=== PATIENT | male | born 1945 | race Caucasian/White ===

== ENCOUNTER 2022-01-18 14:44 | Inpatient (IN) ==
[2022-01-18] MEDS ORDERED: SODIUM CHLORIDE 0.9% 1000ML 1,000 ML IV ONE (15:40)
--- NOTE | 2022-01-18 16:03 | Emergency Department Note ---
Impression & Plan CADEN (acute kidney injury), Acute hypotension, Acute UTI (urinary tract infection) ED Provider Note NAME: TEQUILA KAY AGE: 76 SEX: M : 1945 ARRIVES VIA: Ambulance INFORMANT: Patient, patient's family member ED PROVIDER(S): Earl Martell DO CHIEF COMPLAINT: Abnormal creatinine HPI: The patient is a 76-year-old male who was sent to the emergency department by his primary care physician for an evaluation of possible renal failure. The patient states has been noticing decreased blood pressure and generalized weakness. The patient presented with his family member who does give most of the history. Apparently the patient was recently in a facility in [place] where he was in rehab and personal-penitentiary. He was transferred to our facility last Saturday to a personal penitentiary locally. He had laboratory studies done by the outpatient doctor yesterday and was told to come the emergency department today because of renal failure. The patient states has been compliant with his usual outpatient medication although he recently was told to stop taking his Lasix. He has noticed weight loss as well as generalized weakness. He notices some decreased urine output. He has had no fever but he does complain of some decreased activity and exertional dyspnea. He denies having any chest pain. He states his symptoms are moderate and do worsen with any exertion. He has been trying to take part in rehab but its been difficult. ROS: See above HPI for pertinent positives & the patient is a 76-year-old male who presented to the emergency department negatives. A total of 10 systems reviewed and were otherwise negative. PAST MEDICAL HISTORY: See Below PAST SURGICAL HISTORY: See Below FAMILY HISTORY: See Below SOCIAL HISTORY: See Below HOME MEDICATIONS: See Below ALLERGIES: See Below VITALS: See Below PHYSICAL EXAMINATION: GENERAL: The patient is awake and alert. He does not appear to be anxious or uncomfortable. EYES: The conjunctivae are clear. The pupils are round and reactive. EARS, NOSE, MOUTH AND THROAT: The nose is without any evidence of any deformity. NECK: The neck is nontender and supple. RESPIRATORY: Diminished breath sounds are noted bilaterally. There were rales at both bases. CARDIOVASCULAR: Regular rate and rhythm noted there no murmurs rubs or gallops normal S1 normal S2. GASTROINTESTINAL: The abdomen is soft. Abdomen is nontender. MUSCULOSKELETAL/EXTREMITIES: There is no evidence of gross deformity full range of motion is noted in the hips and shoulders. SKIN: Chronic venous stasis changes were noted bilaterally. There is pedal edema bilaterally. NEUROLOGIC: Patient is awake alert and oriented x3. Strength was diminished but symmetric. MEDICAL DECISION MAKING: Because of worsening creatinine. The patient was recently discharged from inpatient treatment and personal-penitentiary in [place]. He only returned to our area last Saturday. The patient had outpatient labs and was instructed to c ome to the emergency department because of possible renal failure. I did review the recent labs from the outpatient facility. The patient was treated with IV fluids in the emergency department. He was also treated with IV antibiotics for presumed urinary tract infection. He does not appear to have any pulmonary symptoms and his COVID swab was positive but I have a feeling that this could possibly false positive as the patient's daughter states that he recently was diagnosed with COVID-19. I discussed the patient's laboratory and radiographic studies with the on-call [facility]. They will evaluate the patient in the emergency department for further management and disposition. Triage Nursing notes reviewed. Prior medical records reviewed Vital Signs: reviewed and remarkable for tachycardia and initial hypotension. Differential diagnosis: Infection, dehydration, metabolic abnormality, hypo/hyperglycemia, electrolyte disturbance, anemia, hypoxia, cardiac sources, intracerebral event, toxicologic, neurologic, as well as other pathologies. ER treatment provided: See below Diagnostics interpreted by me: ECG: EKG was obtained in the emergency department. My interpretation is sinus rhythm at 123 bpm. There was no ectopy. Low voltage was noted throughout. This was compared to a tracing from March 09, 2019. No changes were noted. Cardiac Monitoring: An order was placed for continuous cardiac monitoring. The monitor shows a rate of 108 bpm With sinus tachycardia Laboratory studies: As stated above and show below. Imaging studies: See below Consultation(s): I discussed this case with Carlita who is on-call for the [facility]. Past Med/Surg History Medical History Hypertension Osteomyelitis of lumbar spine Surgical History H/O lumbosacral spine surgery History of back surgery Family History Other Family history non-contributory Social History Smoking Status: Never smoker Preferred Language: Jamaican Feels Safe at Home: Yes Allergies Allergies Allergy/AdvReac Type Severity Reaction Status Date / Time ciprofloxacin Allergy Intermediate Rash Verified 01/18/22 16:07 codeine AdvReac Severe HALLUCINATI Verified 01/18/22 16:07 ONS minocycline AdvReac Intermediate SKIN Verified 01/18/22 16:07 DISCOLORATION Home Meds Home Medications Medication Instructions Recorded Confirmed doxycycline monohydrate 100 mg 100 mg PO BID 03/09/19 01/18/22 capsule (Monodox) fluticasone propionate 50 2 spray INTRANASAL DAILY 03/09/19 01/18/22 mcg/actuation nasal spray,suspension (Flonase Allergy Relief) levocetirizine 5 mg tablet (Xyzal) 5 mg PO BID 03/09/19 01/18/22 Lactobacillus acidophilus 10,000 mmu cells PO BID 01/18/22 01/18/22 acetaminophen 325 mg tablet 650 mg PO Q6H PRN 01/18/22 01/18/22 (Tylenol) ascorbic acid (vitamin C) 500 mg/5 400 mg PO DAILY 01/18/22 01/18/22 mL oral liquid (Liquid C) carvedilol 3.125 mg tablet 3.125 mg PO BIDM 01/18/22 01/18/22 esomeprazole magnesium 20 mg 20 mg PO BID PRN 01/18/22 01/18/22 capsule,delayed release (Nexium) ferrous sulfate 325 mg (65 mg 325 mg PO DAILY 01/18/22 01/18/22 iron) tablet furosemide 20 mg tablet (Lasix) 20 mg PO DAILY 01/18/22 01/18/22 guaifenesin 100 mg/5 mL oral liquid 400 mg PO BID PRN 01/18/22 01/18/22 loratadine 10 mg tablet (Claritin) 10 mg PO DAILY 01/18/22 01/18/22 potassium chloride 20 mEq 20 meq PO DAILY 01/18/22 01/18/22 tablet,extended release spironolactone 25 mg tablet 25 mg PO BID 01/18/22 01/18/22 thiamine mononitrate (vit B1) 100 100 mg PO DAILY 01/18/22 01/18/22 mg tablet tramadol 50 mg tablet 50 mg PO Q8H PRN 01/18/22 01/18/22 Results & Data (ED) Vital Signs Vital Signs - 24 hr 01/18/22 15:01 01/18/22 15:59 01/18/22 16:30 Temperature 36.6 C Temperature Source Temporal Artery Scan Pulse Rate 82 113 H Pulse Rate [Apical] 113 H Respiratory Rate 18 16 16 Respiratory Effort / Characteristics Non-Labored Spontaneous Non-Labored Spontaneous Respiratory Depth Normal Normal Respiratory Pattern Regular Regular Blood Pressure 99/65 L 126/90 Blood Pressure [Right Arm] 121/92 Blood Pressure Mean 76 102 Blood Pressure Mean [Right Arm] 101 Blood Pressure Position Sitting Blood Pressure Position [Right Arm] Pulse Oximetry 98 94 99 Oxygen Delivery Method Room Air Room Air Sepsis Recent Fever Within 48 Hours No Sepsis New/Unexplained Change in Mental Status N/A Sepsis Action Taken by Nursing No Action Required 01/18/22 17:07 01/18/22 17:30 01/18/22 18:00 Temperature Temperature Source Pulse Rate 110 H 108 H Pulse Rate [Apical] 121 H Respiratory Rate 20 18 17 Respiratory Effort / Characteristics Respiratory Depth Respiratory Pattern Blood Pressure 122/83 123/87 Blood Pressure [Right Arm] 136/92 Blood Pressure Mean 96 99 Blood Pressure Mean [Right Arm] 106 Blood Pressure Position Blood Pressure Position [Right Arm] Lying Pulse Oximetry 96 100 94 Oxygen Delivery Method Room Air Sepsis Recent Fever Within 48 Hours Sepsis New/Unexplained Change in Mental Status Sepsis Action Taken by [facility]itentiary Medications Current Medication List: was personally reviewed by me Laboratory Data Attestation: I reviewed the patient's lab results. Result diagrams: 01/18/22 15:56 01/18/22 15:56 Lab Results 01/18/22 01/18/22 01/18/22 Range/Units 15:49 15:56 15:56 WBC 13.95 H (4.8-10.8) K/uL RBC 3.87 L (4.7-6.1) M/uL Hgb 11.9 L (14.0-18.0) g/dL Hct 36.8 L (42-52) % MCV 95.1 (80-100) fL MCH 30.7 (25-34) pg MCHC 32.3 (32-36) g/dL RDW Std Deviation 47.6 H (36.4-46.3) fL RDW Coeff of Paige 13.7 (11.5-14.5) % Plt Count 432 H (130-400) K/uL MPV 9.6 (7.4-10.4) fL Immature Gran % (Auto) 1.3 % Neut % (Auto) 70.9 % Lymph % (Auto) 17.8 % Adams % (Auto) 8.6 % Eos % (Auto) 1.3 % Baso % (Auto) 0.1 % Neut # (Auto) 9.89 H (1.4-6.5) K/uL Lymph # (Auto) 2.48 (1.2-3.4) K/uL Adams # (Auto) 1.20 H (0.11-0.59) K/uL Eos # (Auto) 0.18 (0-0.5) K/uL Baso # (Auto) 0.02 (0-0.2) K/uL Immature Gran # (Auto) 0.18 H (0.00-0.02) K/uL PT (9.0-12.0) Seconds INR (0.9-1.1) APTT (21.0-31.0) Seconds PTT Ratio Sodium 132 L (136-145) mmol/L Potassium 4.7 (3.5-5.1) mmol/L Chloride 101 (98-107) mmol/L Carbon Dioxide 21 (21-32) mmol/L Anion Gap 10 (3-11) BUN 36 H (6-23) mg/dl Creatinine 2.70 H (0.6-1.4) mg/dl Est Cr Clr Drug Dosing Not Reportable Est GFR ( Amer) 25.7 ml/min Est GFR (Non-Af Amer) 22.2 ml/min BUN/Creatinine Ratio 13.3 (10-20) Glucose 105 H (70-99(Fasting)) mg/dl Calcium 9.6 (8.5-10.1) mg/dl Total Bilirubin 0.6 (0.2-1.0) mg/dl AST 40 H (13-39) U/L ALT 49 (7-52) U/L Alkaline Phosphatase 321 H (34-104) U/L Total Protein 7.5 (6.0-8.3) gm/dl Albumin 3.6 (3.4-5.0) gm/dl Globulin 3.9 (2.5-4.0) gm/dl Albumin/Globulin Ratio 0.9 (0.9-2) Urine Color Urine Appearance (Clear) Urine pH (4.5-7.5) Ur Specific [place] (1.000-1.030) Urine Protein (Negative) Urine Glucose (UA) (Negative) Urine Ketones (Negative) Urine Blood (Negative) Urine Nitrite (Negative) Urine Bilirubin (Negative) Urine Urobilinogen (Negative) Ur Leukocyte Esterase (Negative) Urine WBC (Auto) (0-5) /hpf Urine RBC (Auto) (0-4) /hpf U Hyaline Cast (Auto) (0-5) /lpf U Epithel Cells (Auto) (0-5) /lpf Urine Bacteria (Auto) (Negative) Urine Yeast SARS-CoV-2, RNA, NAAT POSITIVE A* (NEGATIVE) 01/18/22 01/18/22 Range/Units 15:56 17:03 WBC (4.8-10.8) K/uL RBC (4.7-6.1) M/uL Hgb (14.0-18.0) g/dL Hct (42-52) % MCV (80-100) fL MCH (25-34) pg MCHC (32-36) g/dL RDW Std Deviation (36.4-46.3) fL RDW Coeff of Paige (11.5-14.5) % Plt Count (130-400) K/uL MPV (7.4-10.4) fL Immature Gran % (Auto) % Neut % (Auto) % Lymph % (Auto) % Adams % (Auto) % Eos % (Auto) % Baso % (Auto) % Neut # (Auto) (1.4-6.5) K/uL Lymph # (Auto) (1.2-3.4) K/uL Adams # (Auto) (0.11-0.59) K/uL Eos # (Auto) (0-0.5) K/uL Baso # (Auto) (0-0.2) K/uL Immature Gran # (Auto) (0.00-0.02) K/uL PT 9.7 (9.0-12.0) Seconds INR 0.9 (0.9-1.1) APTT < 20.0 L (21.0-31.0) Seconds PTT Ratio 0.7 Sodium (136-145) mmol/L Potassium (3.5-5.1) mmol/L Chloride (98-107) mmol/L Carbon Dioxide (21-32) mmol/L Anion Gap (3-11) BUN (6-23) mg/dl Creatinine (0.6-1.4) mg/dl Est Cr Clr Drug Dosing Est GFR ( Amer) ml/min Est GFR (Non-Af Amer) ml/min BUN/Creatinine Ratio (10-20) Glucose (70-99(Fasting)) mg/dl Calcium (8.5-10.1) mg/dl Total Bilirubin (0.2-1.0) mg/dl AST (13-39) U/L ALT (7-52) U/L Alkaline Phosphatase (34-104) U/L Total Protein (6.0-8.3) gm/dl Albumin (3.4-5.0) gm/dl Globulin (2.5-4.0) gm/dl Albumin/Globulin Ratio (0.9-2) Urine Color Yellow Urine Appearance Cloudy A (Clear) Urine pH 5.5 (4.5-7.5) Ur Specific [place] 1.011 (1.000-1.030) Urine Protein Trace H (Negative) Urine Glucose (UA) Negative (Negative) Urine Ketones Negative (Negative) Urine Blood 3+ H (Negative) Urine Nitrite Positive A (Negative) Urine Bilirubin Negative (Negative) Urine Urobilinogen Negative (Negative) Ur Leukocyte Esterase 2+ H (Negative) Urine WBC (Auto) >30 H (0-5) /hpf Urine RBC (Auto) 0-4 (0-4) /hpf U Hyaline Cast (Auto) 1-5 (0-5) /lpf U Epithel Cells (Auto) 5-10 H (0-5) /lpf Urine Bacteria (Auto) 4+ H (Negative) Urine Yeast Not Reportable SARS-CoV-2, RNA, NAAT (NEGATIVE) Administered Medications Discontinued Medications Sodium Chloride (Nss 1000ml) 1,000 mls @ 999 mls/hr IV .Q1H1M ONE Stop: 01/18/22 16:40 Last Infusion: 01/18/22 17:27 Dose: 0 mls/hr Documented by: [id number] Admin: 01/18/22 16:02 Dose: 999 mls/hr Documented by: [id number] Ceftriaxone Sodium (Rocephin) 1,000 mg in 50 mls @ 100 mls/hr IV NOW STA Stop: 01/18/22 18:31 Last Infusion: 01/18/22 18:41 Dose: 0 mls/hr Documented by: [id number] Admin: 01/18/22 18:11 Dose: 100 mls/hr Documented by: [id number] Sodium Chloride (Nss) 500 mls @ 999 mls/hr IV .Q31M ONE Stop: 01/18/22 18:33 Last Infusion: 01/18/22 18:42 Dose: 0 mls/hr Documented by: [id number] Admin: 01/18/22 18:11 Dose: 999 mls/hr Documented by: [id number] Imaging Data Radiologist's Impression: Chest X-Ray 01/18/22 15:03 XR chest 1V portable CLINICAL HISTORY: illness. Evaluate cardiopulmonary status COMPARISON STUDY: No previous studies for comparison. TECHNIQUE: 1 view of the chest FINDINGS: Single frontal view of the chest demonstrates the cardiomediastinal silhouette to be within normal limits. The lungs are clear of alveolar opacities. There is no evidence for pleural effusion. There is no evidence for vascular congestion. There is no acute osseous pathology. IMPRESSION: 1. No acute cardiopulmonary disease. ACT 112: Negative or not required by law. Electronically signed by: Obed Cardona M.D. 01/18/2022 4:48 PM Discharge Plan Visit Data Chief Complaint: Abnormal Labs/Diagnostic Testing ED Provider: Earl Martell Discharge Problem: CADEN (acute kidney injury), Acute hypotension, Acute UTI (urinary tract infection) Patient Disposition: Being Evaluated by Hospitalist Forms Stand Alone Forms: [facility] Prescriptions Prescriptions: No Action doxycycline monohydrate [Monodox] 100 mg capsule 100 mg PO BID RF: 0 fluticasone propionate [Flonase Allergy Relief] 50 mcg/actuation spray,suspension 2 spray intranasal DAILY RF: 0 levocetirizine [Xyzal] 5 mg tablet 5 mg PO BID RF: 0 acetaminophen [Tylenol] 325 mg Tablet 650 mg PO Q6H PRN (Reason: FEVER/PAIN) RF: 0 tramadol 50 mg Tablet 50 mg PO Q8H PRN (Reason: Pain) RF: 0 guaifenesin 100 mg/5 mL Liquid 400 mg PO BID PRN (Reason: Cough) RF: 0 spironolactone 25 mg Tablet 25 mg PO BID RF: 0 carvedilol 3.125 mg Tablet 3.125 mg PO BIDM RF: 0 ferrous sulfate 325 mg (65 mg iron) Tablet 325 mg PO DAILY RF: 0 furosemide [Lasix] 20 mg Tablet 20 mg PO DAILY RF: 0 Lactobacillus acidophilus Capsule 10,000 mmu cells PO BID RF: 0 loratadine [Claritin] 10 mg Tablet 10 mg PO DAILY RF: 0 esomeprazole magnesium [Nexium] 20 mg Capsule,Delayed Release(Dr/Ec) 20 mg PO BID PRN (Reason: Nausea) RF: 0 thiamine mononitrate (vit B1) 100 mg Tablet 100 mg PO DAILY RF: 0 potassium chloride 20 mEq Tablet Extended Release 20 meq PO DAILY RF: 0 Liquid C 500 mg/5 mL Liquid 400 mg PO DAILY RF: 0 Referrals Referrals: Gloria Muñoz MD [Primary Care Provider] -
[2022-01-18 16:17] LABS: Basophils # (auto) 0.02 K/uL (0-0.2); Basophils % (auto) 0.1 %; Eosinophils # (auto) 0.18 K/uL (0-0.5); Eosinophils % (auto) 1.3 %; Hematocrit (blood only) 36.8 % (42-52); Hemoglobin 11.9 g/dL (14.0-18.0); Immature Granulocytes # (auto) 0.18 K/uL (0.00-0.02); Immature Granulocytes % (auto) 1.3 %; Lymphocytes # (auto) 2.48 K/uL (1.2-3.4); Lymphocytes % (auto) 17.8 %; Mean Corpuscular Hemoglobin 30.7 pg (25-34); Mean Corpuscular Hgb Conc 32.3 g/dL (32-36); Mean Corpuscular Volume 95.1 fL (80-100); Mean Platelet Volume 9.6 fL (7.4-10.4); Monocytes % (auto) 8.6 %; Neutrophils # (auto) 9.89 K/uL (1.4-6.5); Neutrophils % (auto) 70.9 %; Platelet Count 432 K/uL (130-400); RDW Coefficient of Variation 13.7 % (11.5-14.5); RDW Standard Deviation 47.6 fL (36.4-46.3); Red Blood Count 3.87 M/uL (4.7-6.1); White Blood Count 13.95 K/uL (4.8-10.8)
--- NOTE | 2022-01-18 16:49 | XRay Report ---
XR chest 1V portable CLINICAL HISTORY: illness. Evaluate cardiopulmonary status COMPARISON STUDY: No previous studies for comparison. TECHNIQUE: 1 view of the chest FINDINGS: Single frontal view of the chest demonstrates the cardiomediastinal silhouette to be within normal li mits. The lungs are clear of alveolar opacities. There is no evidence for pleural effusion. There is no evidence for vascular congestion. There is no acute osseous pathology. IMPRESSION: 1. No acute cardiopulmonary disease. ACT 112: Negative or not required by law. Electronically signed by: Obed Cardona M.D. 01/18/2022 4:48 PM
[2022-01-18 16:51] LABS: INR 0.9 (0.9-1.1); Partial Thromboplastin Ratio 0.7; Prothrombin Time 9.7 Seconds (9.0-12.0)
[2022-01-18 16:58] LABS: Partial Thromboplastin Time < 20.0 Seconds (21.0-31.0)
[2022-01-18 17:16] LABS: Alanine Aminotransferase 49 U/L (7-52); Albumin Globulin Ratio 0.9 (0.9-2); Albumin Level 3.6 gm/dl (3.4-5.0); Alkaline Phosphatase 321 U/L (34-104); Anion Gap 10 (3-11); Aspartate Aminotransferase 40 U/L (13-39); BUN Creatinine Ratio 13.3 (10-20); Bilirubin,Total 0.6 mg/dl (0.2-1.0); Blood Urea Nitrogen 36 mg/dl (6-23); Calcium 9.6 mg/dl (8.5-10.1); Carbon Dioxide 21 mmol/L (21-32); Chloride 101 mmol/L (98-107); Est GFR (African American) 25.7 ml/min; Est GFR (Non-African American) 22.2 ml/min; Globulin 3.9 gm/dl (2.5-4.0); Glucose 105 mg/dl (70-99(Fasting)); Potassium 4.7 mmol/L (3.5-5.1); Sodium 132 mmol/L (136-145); Total Protein 7.5 gm/dl (6.0-8.3)
[2022-01-18 17:44] LABS: Appearance Urine Cloudy (Clear); Bacteria Urine Automated 4+ (Negative); Bilirubin Urine Negative (Negative); Blood Urine 3+ (Negative); Color Urine Yellow; Glucose Urine UA Negative (Negative); Ketones Urine Negative (Negative); Leukocyte Esterase Urine 2+ (Negative); Nitrite Urine Positive (Negative); Protein Urine Trace (Negative); Specific Gravity Urine 1.011 (1.000-1.030); Urobilinogen Urine Negative (Negative); WBC Urine Automated >30 /hpf (0-5); pH Urine 5.5 (4.5-7.5)
[2022-01-18] MEDS ORDERED: cefTRIAXone SODIUM 1,000 MG/50 ML BAG IV STA (18:02)
[2022-01-18] MEDS ORDERED: SODIUM CHLORIDE 0.9% 500 ML IV ONE (18:03)
--- NOTE | 2022-01-18 18:29 | History & Physical Report ---
Date of Service January 18, 2022 Assessment & Plan (1) CADEN (acute kidney injury): (2) Acute UTI (urinary tract infection): Plan: - Admit - HOLD home lasix, spironolactone and potassium for now - Cr. 2.7 on admission, trend with am labs, outpatient labs were reported to be >3. Unknown baseline. - Continue IV rocephin IV for now, allow doxycycline with hx of osteomyeltiis and chronic back issues - Consider nephrology consult, unlikely that he has established with a clock maker as he just moved to the area last Saturday. - UA appears to be acutely infected, follow urine culture - Avoid nephrotoxins and renally reduce medications - 1.5 L NSS given in the ER. No further fluids until ECHO of heart obtained to see if pt with hx of CHF. He cannot tell me his full medical history or what happened with multiple previous hospitalizations. - HIM consulted for outside hospital records, [place], [place] (3) Hypertension: Plan: - Cont carvedilol, holding spironolactone and lasix as above - Check 2D echo - EKG reviewed, monitor on tele - NO cardiac complaints presently (4) Osteomyelitis of lumbar spine: Plan: - Hx of such, continue with doxycyline. NO current leukocytosis, afebrile, no acute co back pain. - Await outside records (5) COVID-19: Plan: - Positive on admission, pt is vaccinated x 3, reports having infection in September 2021 and remains positive. He has a dry cough since then, but no other respiratory symptoms. - O2 sats are stable on room air. DVT ppx: teds, scds, heparin subq CODE: DNR/DNI Dispo: From [facility], likely discharge within 1-2 days. History of Present Illness Primary Care Provider: Gloria Muñoz MD This is a 76-year-old male with PMHx of multiple recent hospitalizations at [facility] in [place]. He was brought locally to [facility] (assisted living) by his family, as his daughter lives here in town. He describes being in and out of the hospital on multiple occasions through September 2021. In September he was hospitalized for COVID +19 pneumonia, and reported admitted for alcohol withdrawal and stopped drinking at that time. Sometimes during this he was also worked up for a GI bleed and received 4 units of blood during a hospitalization and describes an EGD without acute source for the bleeding. He had previous back surgery who presents to the ER after he was called by outpa tient provider that his kidney function was increased and daughter thought that he was in renal failure. He has previously had other issues with his kidneys during hospitalizations. Pt also describes previous back surgeries on 2005 and 2014 involving L2-L4. He has had infected abscess and osteomyelitis previously, and is on chronic doxycycline BID. Surgical Hx: R rotator cuff repair, Prostate cancer s/p prostatectomy in 2006, cholecystectomy, back surgery x 2 Social Hx; No smoking, previous alcohol use but quit drinking in Sep 2021. Creatinine is found to be 2.7 today, previously was higher than 3 per daughter through report. UTI appears to be present with a grossly infected appearing UA. Pt admits to having burning with urination within the past day, but did not think much of it. He denies increased frequency, hematuria, abdominal pain, n/v, or inability to urinate. He notes having a straight cath about 3 weeks ago because of urinary retention which in a hospital, but denies any other catheterization. Pt is chronically on doxycycline BID for hx of osteomyelitis and a spinal abscess from previous back surgeries. He has been started on 1.5 L of NSS in the ER and Rocephin IV. Pt reports he took all of his home medications. Allergies Allergy/AdvReac Type Severity Reaction Status Date / Time ciprofloxacin Allergy Intermediate Rash Verified 01/18/22 16:07 codeine AdvReac Severe HALLUCINATI Verified 01/18/22 16:07 ONS minocycline AdvReac Intermediate SKIN Verified 01/18/22 16:07 DISCOLORATION Home Medications Medication Instructions Recorded Confirmed Type doxycycline monohydrate 100 mg 100 mg PO BID 03/09/19 01/18/22 History capsule (Monodox) fluticasone propionate 50 2 spray INTRANASAL DAILY 03/09/19 01/18/22 History mcg/actuation nasal spray,suspension (Flonase Allergy Relief) levocetirizine 5 mg tablet (Xyzal) 5 mg PO BID 03/09/19 01/18/22 History Lactobacillus acidophilus 10,000 mmu cells PO BID 01/18/22 01/18/22 History acetaminophen 325 mg tablet 650 mg PO Q6H PRN 01/18/22 01/18/22 History (Tylenol) ascorbic acid (vitamin C) 500 mg/5 400 mg PO DAILY 01/18/22 01/18/22 History mL oral liquid (Liquid C) carvedilol 3.125 mg tablet 3.125 mg PO BIDM 01/18/22 01/18/22 History esomeprazole magnesium 20 mg 20 mg PO BID PRN 01/18/22 01/18/22 History capsule,delayed release (Nexium) ferrous sulfate 325 mg (65 mg 325 mg PO DAILY 01/18/22 01/18/22 History iron) tablet furosemide 20 mg tablet (Lasix) 20 mg PO DAILY 01/18/22 01/18/22 History guaifenesin 100 mg/5 mL oral liquid 400 mg PO BID PRN 01/18/22 01/18/22 History loratadine 10 mg tablet (Claritin) 10 mg PO DAILY 01/18/22 01/18/22 History potassium chloride 20 mEq 20 meq PO DAILY 01/18/22 01/18/22 History tablet,extended release spironolactone 25 mg tablet 25 mg PO BID 01/18/22 01/18/22 History thiamine mononitrate (vit B1) 100 100 mg PO DAILY 01/18/22 01/18/22 History mg tablet tramadol 50 mg tablet 50 mg PO Q8H PRN 01/18/22 01/18/22 History Past Med/Surg History Medical History (Updated 01/18/22 @ 20:10 by Millicent Ramos PA-C) Hx of malignant neoplasm of prostate Hypertension Osteomyelitis of lumbar spine Surgical History (Updated 01/18/22 @ 19:58 by Millicent Ramos PA-C) H/O lumbosacral spine surgery History of back surgery Hx of cholecystectomy Hx of prostatectomy Hx of rotator cuff surgery Family History Other Family history non-contributory Social History Smoking Status: Never smoker Preferred Language: French Feels Safe at Home: Yes Review of Systems Review of Systems: Constitutional: No fever, sweats or chills Eyes: No diplopia, no worsening or blurred vision ENT: normal hearing, no trouble swallowing Respiratory: No cough, sputum, dyspnea at rest or on exertion Cardiovascular: No chest pain, tightness or palpitations Abdomen: No pain, nausea, vomiting, diarrhea or constipation Musculoskeletal: No joint pain, calf pain, swelling Neurologic: No weakness, numbness/tingling, or balance problems Psychiatric: No anxiety or depression Skin: No rash or itch, chronic parra discoloration on extremities Physical Exam Physical Exam: General: awake, alert, no apparent distress Head: Normocephalic, atraumatic ENT: PERRL, EOMI, no pharyngeal exudate, mucous membranes moist Chest: Clear to auscultation, on room air, no adventitious breath sounds Cardiac: Sinus tach, faint systolic ejection murmur, no JVD, normal peripheral pulses, good capillary refill Abdominal: NABS x 4 quadrants, soft, nondistended, nontender to palpation, no rebound or guarding Extremities: Normal inspection, no peripheral edema or erythema, calfs nontender to palpation Skin: chronic changes, parra appearance of skin throughout, no erythema Psych: Normal mood and affect Neuro: AAO x 3, strength intact bilaterally and rated 5/5, no motor deficits, speech is clear, no peripheral sensory deficits Results & Data Results & Data ([facility]) Vital Signs (Past 12 Hours) Vital Signs Temp Pulse Pulse Resp BP BP Pulse Ox 01/18/22 18:00 108 H 17 123/87 94 01/18/22 17:30 110 H 18 122/83 100 01/18/22 17:07 121 H 20 136/92 96 01/18/22 16:30 113 H 16 126/90 99 01/18/22 15:59 113 H 16 121/92 94 01/18/22 15:01 36.6 C 82 18 99/65 L 98 Laboratory Results 01/18/22 17:03 Urine Culture - Pending Urine,Clean Catch 01/18/22 01/18/22 01/18/22 17:03 15:56 15:56 WBC RBC Hgb Hct MCV MCH MCHC RDW Std Deviation RDW Coeff of Paige Plt Count MPV Immature Gran % (Auto) Neut % (Auto) Lymph % (Auto) [place] % (Auto) Eos % (Auto) Baso % (Auto) Neut # (Auto) Lymph # (Auto) [place] # (Auto) Eos # (Auto) Baso # (Auto) Immature Gran # (Auto) PT 9.7 INR 0.9 APTT < 20.0 L PTT Ratio 0.7 Sodium 132 L Potassium 4.7 Chloride 101 Carbon Dioxide 21 Anion Gap 10 BUN 36 H Creatinine 2.70 H Est Cr Clr Drug Dosing Not Reportable Est GFR ( Amer) 25.7 Est GFR (Non-Af Amer) 22.2 BUN/Creatinine Ratio 13.3 Glucose 105 H Calcium 9.6 Total Bilirubin 0.6 AST 40 H ALT 49 Alkaline Phosphatase 321 H Total Protein 7.5 Albumin 3.6 Globulin 3.9 Albumin/Globulin Ratio 0.9 Urine Color Yellow Urine Appearance Cloudy A Urine pH 5.5 Ur Specific [place] 1.011 Urine Protein Trace H Urine Glucose (UA) Negative Urine Ketones Negative Urine Blood 3+ H Urine Nitrite Positive A Urine Bilirubin Negative Urine Urobilinogen Negative Ur Leukocyte Esterase 2+ H Urine WBC (Auto) >30 H Urine RBC (Auto) 0-4 U Hyaline Cast (Auto) 1-5 U Epithel Cells (Auto) 5-10 H Urine Bacteria (Auto) 4+ H Urine Yeast Not Reportable SARS-CoV-2, RNA, NAAT 01/18/22 01/18/22 15:56 15:49 WBC 13.95 H RBC 3.87 L Hgb 11.9 L Hct 36.8 L MCV 95.1 MCH 30.7 MCHC 32.3 RDW Std Deviation 47.6 H RDW Coeff of Paige 13.7 Plt Count 432 H MPV 9.6 Immature Gran % (Auto) 1.3 Neut % (Auto) 70.9 Lymph % (Auto) 17.8 Mellette % (Auto) 8.6 Eos % (Auto) 1.3 Baso % (Auto) 0.1 Neut # (Auto) 9.89 H Lymph # (Auto) 2.48 Mellette # (Auto) 1.20 H Eos # (Auto) 0.18 Baso # (Auto) 0.02 Immature Gran # (Auto) 0.18 H PT INR APTT PTT Ratio Sodium Potassium Chloride Carbon Dioxide Anion Gap BUN Creatinine Est Cr Clr Drug Dosing Est GFR ( Amer) Est GFR (Non-Af Amer) BUN/Creatinine Ratio Glucose Calcium Total Bilirubin AST ALT Alkaline Phosphatase Total Protein Albumin Globulin Albumin/Globulin Ratio Urine Color Urine Appearance Urine pH Ur Specific [place] Urine Protein Urine Glucose (UA) Urine Ketones Urine Blood Urine Nitrite Urine Bilirubin Urine Urobilinogen Ur Leukocyte Esterase Urine WBC (Auto) Urine RBC (Auto) U Hyaline Cast (Auto) U Epithel Cells (Auto) Urine Bacteria (Auto) Urine Yeast SARS-CoV-2, RNA, NAAT POSITIVE A* Diagnostic Findings Chest X-Ray 01/18/22 15:03 XR chest 1V portable CLINICAL HISTORY: illness. Evaluate cardiopulmonary status COMPARISON STUDY: No previous studies for comparison. TECHNIQUE: 1 view of the chest FINDINGS: Single frontal view of the chest demonstrates the cardiomediastinal silhouette to be within normal limits. The lungs are clear of alveolar opacities. There is no evidence for pleural effusion. There is no evidence for vascular congestion. There is no acute osseous pathology. IMPRESSION: 1. No acute cardiopulmonary disease. ACT 112: Negative or not required by law. Electronically signed by: Obed Cardona M.D. 01/18/2022 4:48 PM ECG Additional Comments: 18-JAN-2022 15:45:50 [facility]-EDSTAT ROUTINE RETRIEVAL Poor data quality, interpretation may be adversely affected Undetermined rhythm Left axis deviation Low voltage QRS Inferior infarct , age undetermined Abnormal ECG When compared with ECG of 09-MAR-2019 17:01, Current undetermined rhythm precludes rhythm comparison, needs review Inferior infarct is now Present Nonspecific T wave abnormality, improved in Lateral leads 25mm/s10mm/[id number] 241CID: 3Unconfirmed Vent. rate 123 BPM ND interval 138 ms QRS duration 64 ms QT/QTc 350/501 ms Code Status & VTE Plan Code Status DNR/DNI - discussed with the pt at bedside Supervising Physician Co-Signing Physician Notes Patient was seen and examined independently at bedside. Chart reviewed, case discussed with Millicent MITCHELL and agree with her documentation. During my encounter, he is lying comfortably in bed, saturating well in room air. States he feels cold and asking when he will be transferred to his room upstairs. Complaining of pain in hips and asking for tylenol. States he was asked to come in because of abnormal blood work (Cr in OP labs but his prior numbers were higher, he is from [place] and moved here recently and we are trying to get his records). Also has some dysuria for the past 2 weeks. UA s/o UTI and started on rocephin; no CVA tenderness. Abd benign, chest clear, LE>UE with blackish discoloration from his prior ABx which has since been changed; he is on chronic doxy for chronic OM. Denies any fever, chills. Also tested positive for COVID 19 in ED but fully vaccinated, not hypoxic and no respiratory issues and no PNA in imaging, so no treatment warranted. Recheck labs in am. Await his prior medical records. Rest per the note above.
[2022-01-18 18:37] LABS: RBC Urine Automated 0-4 /hpf (0-4)
[2022-01-18] MEDS ORDERED: cefTRIAXone SODIUM 1,000 MG in DEXTROSE 5% 50 ML IV SCH (19:19)
[2022-01-18] MEDS ORDERED: ACETAMINOPHEN 325 MG TAB PO PRN (21:27)
[2022-01-18] MEDS ORDERED: DOXYCYCLINE MONOHYDRATE 100 MG PO SCH (22:42)
[2022-01-18] MEDS ORDERED: ADVANCED PROBIOTIC 1250 MG CAPSULE PO ONE (22:42)
[2022-01-18] MEDS ORDERED: ONDANSETRON INJ 2 MG/ML 2 ML VIAL IV PRN (22:42)
[2022-01-18] MEDS ORDERED: PANTOprazole 40 MG TAB PO PRN (22:54)
[2022-01-18] MEDS ORDERED: guaiFENesin SUGAR FREE 200 MG/10 ML UDC PO PRN (23:04)
[2022-01-19] MEDS ORDERED: DOXYCYCLINE HYCLATE 100 MG CAP PO SCH (02:15)
[2022-01-19] MEDS: cefTRIAXone SODIUM 2,000 MG in DEXTROSE 5% 50 ML IV SCH (05:56)
--- NOTE | 2022-01-19 06:10 | Electrocardiogram Report ---
Test Reason : Blood Pressure : / mmHG Vent. Rate : 123 BPM Atrial Rate : 119 BPM P-R Int : 138 ms QRS Dur : 064 ms QT Int : 350 ms P-R-T Axes : 018 -40 040 degrees QTc Int : 501 ms Poor data quality, interpretation may be adversely affected Sinus tachycardia Left axis deviation Low voltage QRS Inferior infarct , age undetermined Nonspecific T wave abnormality Abnormal ECG When compared with ECG of 09-MAR-2019 17:01, Inferior infarct is now Present Nonspecific T wave abnormality, improved in Anterolateral leads Confirmed by Jhonny Asher ([id number]) on 01/19/2022 6:10:24 AM Referred By: Confirmed By:Jhonny Asher
[2022-01-19] MEDS: LORATADINE 10 MG TAB PO SCH (08:13)
[2022-01-19] MEDS: ACETAMINOPHEN 325 MG TAB PO PRN ×2 (08:13→19:55)
[2022-01-19] MEDS: ADVANCED PROBIOTIC 1250 MG CAPSULE PO SCH ×2 (08:13→19:59)
[2022-01-19] MEDS: THIAMINE HCL 100 MG TAB PO SCH (08:13)
[2022-01-19] MEDS: ENOXAPARIN INJ 30 MG/0.3 ML SYR SQ SCH (08:14)
[2022-01-19] MEDS: ASCORBIC ACID 500 MG TAB PO SCH (08:14)
[2022-01-19] MEDS: carvediloL 3.125 MG TAB PO SCH ×2 (08:14→15:23)
[2022-01-19] MEDS: FERROUS SULFATE 325 MG TAB PO SCH (08:14)
[2022-01-19] MEDS: FLUTICASONE PROPIONATE NA SPR 16 GM BTL SCH (08:14)
[2022-01-19] MEDS: DOXYCYCLINE HYCLATE 100 MG CAP PO SCH ×2 (11:05→18:08)
[2022-01-19 11:21] LABS: INR 1.1 (0.9-1.1); Prothrombin Time 11.6 Seconds (9.0-12.0)
[2022-01-19 11:31] LABS: Hematocrit (blood only) 30.5 % (42-52); Hemoglobin 9.8 g/dL (14.0-18.0); Mean Corpuscular Hemoglobin 30.6 pg (25-34); Mean Corpuscular Hgb Conc 32.1 g/dL (32-36); Mean Corpuscular Volume 95.3 fL (80-100); Mean Platelet Volume 9.6 fL (7.4-10.4); Platelet Count 337 K/uL (130-400); RDW Coefficient of Variation 13.7 % (11.5-14.5); RDW Standard Deviation 48.1 fL (36.4-46.3); White Blood Count 10.84 K/uL (4.8-10.8)
[2022-01-19 12:02] LABS: Albumin Globulin Ratio 0.9 (0.9-2); Albumin Level 2.9 gm/dl (3.4-5.0); BUN Creatinine Ratio 14.2 (10-20); Bilirubin Direct 0.1 mg/dl (0-0.2); Bilirubin,Total 0.5 mg/dl (0.2-1.0); Calcium 8.7 mg/dl (8.5-10.1); Chol HDL Ratio 5.1 (0-5); Creatinine Clr Calc Pharmacy 33.3 ml/min; Est GFR (African American) 31.9 ml/min; Est GFR (Non-African American) 27.5 ml/min; Globulin 3.1 gm/dl (2.5-4.0); Magnesium 1.6 mg/dl (1.7-2.4); Phosphorus 4.4 mg/dl (2.5-4.9); Potassium 4.3 mmol/L (3.5-5.1)
[2022-01-19] MEDS: SODIUM CHLORIDE 0.9% 1000ML 1,000 ML IV SCH (12:50)
[2022-01-19 13:15] LABS: Estimated Average Glucose 97 mg/dl
[2022-01-19] MEDS: traMADol HCL 50 MG TABLET PO PRN (15:29)
--- NOTE | 2022-01-19 17:41 | Hospitalist Progress Note ---
Date of Service January 19, 2022 Assessment & Plan (1) CADEN (acute kidney injury): Plan: Likely secondary to dehydration Creatinine is minimally improved at 2.26 from 2.70 as of yesterday Will give a small dose of intravenous fluid and monitor PRP (2) Acute UTI (urinary tract infection): Plan: - Admit - HOLD home lasix, spironolactone and potassium for now - Cr. 2.7 on admission, trend with am labs, outpatient labs were reported to be >3. Unknown baseline. - Continue IV rocephin IV for now, allow doxycycline with hx of osteomyeltiis and chronic back issues - Consider nephrology consult, unlikely that he has established with a heater installer as he just moved to the area last Saturday. - UA appears to be acutely infected, follow urine culture - Avoid nephrotoxins and renally reduce medications - HIM consulted for outside hospital records, [place], [place] -Awaiting culture and sensitivity (3) Hypertension: Plan: - Cont carvedilol, holding spironolactone and lasix as above - Check 2D echo-LV is normal in size, there is mild concentric LVH, LV systolic function is normal with EF of more than 70% - EKG reviewed, monitor on tele - NO cardiac complaints presently -Remains stable (4) Osteomyelitis of lumbar spine: Plan: - Hx of such, continue with doxycyline. NO current leukocytosis, afebrile, no acute co back pain. - Await outside records (5) COVID-19: Plan: - Positive on admission, pt is vaccinated x 3, reports having infection in September 2021 and remains positive. He has a dry cough since then, but no other respiratory symptoms. - O2 sats are stable on room air. -Denies any significant COVID 19 infection symptoms -We will recheck COVID-19 virus before discharge DVT ppx: teds, scds, heparin subq CODE: DNR/DNI Dispo: From [facility], likely discharge within 1-2 days. Admission and Anticipated Discharge Date Admission Date: January 18, 2022 Subjective 01/19/2022 The patient was seen and examined in medical telemetry unit He has been complaining of weakness and minimal cough which has been ongoing Has had minimal urinary symptoms Denies any nausea and or vomiting Review of Systems Review of Systems: All systems reviewed and are unremarkable except as noted below Musculoskeletal: No acute arthritis in any joint Neurologic: Generally weak Physical Exam Physical Exam: Lying in bed comfortably Constitutional: well developed, well nourished, + ill appearing and + obese Eyes: PERRL, conjunctivae normal, anicteric sclerae ENMT: external ear and nose normal, oropharynx normal Neck: trachea midline, no thyromegaly Respiratory: no respiratory distress and no labored breathing Auscultation: + diminished lung sounds; no crackles Cardiovascular: Rate/Rhythm: regular rate, regular rhythm and + tachycardic Heart Sounds: normal S1 and normal S2; no murmur Extremities: no edema Gastrointestinal (Abdomen): Inspection/Auscultation: normal bowel sounds; abdomen not distended Percussion/Palpation: abdomen soft; abdomen nontender Musculoskeletal: No acute arthritis in any joint Neurologic: Alert, awake and oriented x3. Generally weak and lethargic Lymphatic: no cervical or axillary lymphadenopathy Results & Data Results & Data ([facility]) Vital Signs (Past 12 Hours) Vital Signs Temp Pulse Pulse Resp BP Pulse Ox 01/19/22 15:45 105 H 01/19/22 14:20 36.2 C L 108 H 20 100/68 97 01/19/22 07:33 36.5 C 107 H 20 113/70 99 Laboratory Results Short CBC 01/19/22 Range/Units 10:49 WBC 10.84 H (4.8-10.8) K/uL Hgb 9.8 L (14.0-18.0) g/dL Hct 30.5 L (42-52) % Plt Count 337 (130-400) K/uL BMP 01/19/22 10:49 Sodium 133 L Potassium 4.3 Chloride 104 Carbon Dioxide 20 L BUN 32 H Creatinine 2.26 H D Glucose 91 Calcium 8.7 Liver Function 01/19/22 Range/Units 10:49 Total Bilirubin 0.5 (0.2-1.0) mg/dl Direct Bilirubin 0.1 (0-0.2) mg/dl AST 48 H (13-39) U/L ALT 45 (7-52) U/L Alkaline Phosphatase 252 H (34-104) U/L Albumin 2.9 L (3.4-5.0) gm/dl Urine 01/18/22 Range/Units 17:03 Urine Color Yellow Urine Appearance Cloudy A (Clear) Urine pH 5.5 (4.5-7.5) Ur Specific [place] 1.011 (1.000-1.030) Urine Protein Trace H (Negative) Urine Glucose (UA) Negative (Negative) Medications Administered Current Inpatient Medications Acetaminophen (Acetaminophen 325 Mg Tab) 650 mg PO Q6H PRN PRN Reason: FEVER/PAIN Stop: 02/17/22 22:41 Last Admin: 01/19/22 08:13 Dose: 650 mg Documented by: Ascorbic Acid (Ascorbic Acid 500 Mg Tab) 500 mg PO DAILY [facility] Stop: 02/18/22 08:59 Last Admin: 01/19/22 08:14 Dose: 500 mg Documented by: Carvedilol (Carvedilol 3.125 Mg Tab) 3.125 mg PO BIDM [facility] Stop: 02/18/22 07:59 Last Admin: 01/19/22 15:23 Dose: Not Given Documented by: Doxycycline Hyclate (Doxycycline Hyclate 100 Mg Cap) 100 mg PO Q12H [facility] Stop: 02/18/22 06:59 Last Admin: 01/19/22 11:05 Dose: 100 mg Documented by: Enoxaparin Sodium (Enoxaparin Inj 30 Mg/0.3 Ml Syr) 30 mg SQ QAM [facility] Stop: 02/18/22 08:59 Last Admin: 01/19/22 08:14 Dose: 30 mg Documented by: Ferrous Sulfate (Ferrous Sulfate 325 Mg Tab) 325 mg PO DAILY [facility] Stop: 02/18/22 08:59 Last Admin: 01/19/22 08:14 Dose: 325 mg Documented by: Fluticasone Propionate (Fluticasone Propionate Na Spr 16 Gm Btl) 2 sprays NA DAILY [facility] Stop: 02/18/22 08:59 Last Admin: 01/19/22 08:14 Dose: 2 sprays Documented by: Guaifenesin (Guaifenesin Sugar Free 200 Mg/10 Ml Udc) 400 mg PO BID PRN PRN Reason: Cough Stop: 02/17/22 23:03 Ceftriaxone Sodium 2,000 mg/ (Dextrose) 70 mls @ 140 mls/hr IV Q24H [facility] Stop: 01/24/22 05:59 Last Infusion: 01/19/22 06:26 Dose: Infused Documented by: Sodium Chloride (Nss 1000ml) 1,000 mls @ 80 mls/hr IV .[id number] [facility] Stop: 01/21/22 01:44 Last Admin: 01/19/22 12:50 Dose: 80 mls/hr Documented by: Lactobacillus Acidophilus (Advanced Probiotic 1250 Mg Capsule) 2 cap PO BID [facility] Stop: 02/18/22 08:59 Last Admin: 01/19/22 08:13 Dose: 2 cap Documented by: Loratadine (Loratadine 10 Mg Tab) 10 mg PO DAILY [facility] Stop: 02/18/22 08:59 Last Admin: 01/19/22 08:13 Dose: 10 mg Documented by: Ondansetron HCl (Ondansetron Inj 2 Mg/Ml 2 Ml Vial) 4 mg IV Q4H PRN PRN Reason: Nausea And Vomiting Stop: 02/17/22 22:41 Pantoprazole Sodium (Pantoprazole 40 Mg Tab) 40 mg PO BID PRN PRN Reason: Nausea Stop: 02/17/22 22:53 Thiamine HCl (Thiamine Hcl 100 Mg Tab) 100 mg PO DAILY [facility] Stop: 02/18/22 08:59 Last Admin: 01/19/22 08:13 Dose: 100 mg Documented by: Tramadol HCl (Tramadol Hcl 50 Mg Tablet) 50 mg PO Q8H PRN PRN Reason: Pain Stop: 02/17/22 19:18 Last Admin: 01/19/22 15:29 Dose: 50 mg Documented by:
[2022-01-20] MEDS: SODIUM CHLORIDE 0.9% 1000ML 1,000 ML IV SCH ×2 (01:53→15:41)
[2022-01-20] MEDS: DOXYCYCLINE HYCLATE 100 MG CAP PO SCH ×2 (06:05→17:45)
[2022-01-20] MEDS: cefTRIAXone SODIUM 2,000 MG in DEXTROSE 5% 50 ML IV SCH (06:08)
[2022-01-20] MEDS: carvediloL 3.125 MG TAB PO SCH ×2 (09:07→17:45)
[2022-01-20] MEDS: traMADol HCL 50 MG TABLET PO PRN (09:07)
[2022-01-20] MEDS: ENOXAPARIN INJ 30 MG/0.3 ML SYR SQ SCH (09:07)
[2022-01-20] MEDS: FLUTICASONE PROPIONATE NA SPR 16 GM BTL SCH (09:07)
[2022-01-20] MEDS: LORATADINE 10 MG TAB PO SCH (09:07)
[2022-01-20] MEDS: FERROUS SULFATE 325 MG TAB PO SCH (09:07)
[2022-01-20] MEDS: ASCORBIC ACID 500 MG TAB PO SCH (09:07)
[2022-01-20] MEDS: THIAMINE HCL 100 MG TAB PO SCH (09:07)
[2022-01-20] MEDS: ADVANCED PROBIOTIC 1250 MG CAPSULE PO SCH ×2 (09:07→20:01)
[2022-01-20 10:06] LABS: Basophils # (auto) 0.01 K/uL (0-0.2); Basophils % (auto) 0.1 %; Eosinophils # (auto) 0.25 K/uL (0-0.5); Eosinophils % (auto) 3.1 %; Hematocrit (blood only) 28.1 % (42-52); Hemoglobin 9.4 g/dL (14.0-18.0); Immature Granulocytes # (auto) 0.11 K/uL (0.00-0.02); Immature Granulocytes % (auto) 1.4 %; Lymphocytes # (auto) 1.39 K/uL (1.2-3.4); Lymphocytes % (auto) 17.4 %; Mean Corpuscular Hemoglobin 30.9 pg (25-34); Mean Corpuscular Hgb Conc 33.5 g/dL (32-36); Mean Corpuscular Volume 92.4 fL (80-100); Mean Platelet Volume 9.3 fL (7.4-10.4); Monocytes % (auto) 8.8 %; Neutrophils # (auto) 5.52 K/uL (1.4-6.5); Neutrophils % (auto) 69.2 %; Platelet Count 315 K/uL (130-400); RDW Coefficient of Variation 13.7 % (11.5-14.5); RDW Standard Deviation 45.8 fL (36.4-46.3); Red Blood Count 3.04 M/uL (4.7-6.1); White Blood Count 7.98 K/uL (4.8-10.8)
[2022-01-20 10:34] LABS: BUN Creatinine Ratio 13.6 (10-20); Calcium 8.4 mg/dl (8.5-10.1); Creatinine Clr Calc Pharmacy 35.4 ml/min; Est GFR (African American) 34.3 ml/min; Est GFR (Non-African American) 29.6 ml/min; Magnesium 1.6 mg/dl (1.7-2.4)
--- NOTE | 2022-01-20 16:34 | Hospitalist Progress Note ---
Date of Service January 20, 2022 Assessment & Plan (1) CADEN (acute kidney injury): Plan: Likely secondary to dehydration Creatinine is minimally improved at 2.26 from 2.70 as of yesterday Will give a small dose of intravenous fluid and monitor PRP Creatinine has been improving which is at 2.13 as of 01/20/2022 Was advised to drink more fluid (2) Acute UTI (urinary tract infection): Plan: - Admit - HOLD home lasix, spironolactone and potassium for now - Cr. 2.7 on admission, trend with am labs, outpatient labs were reported to be >3. Unknown baseline. - Continue IV rocephin IV for now, allow doxycycline with hx of osteomyeltiis and chronic back issues - Consider nephrology consult, unlikely that he has established with a editor greeting card as he just moved to the area last Saturday. - UA appears to be acutely infected, follow urine culture - Avoid nephrotoxins and renally reduce medications - HIM consulted for outside hospital records, [place], [place] -Awaiting culture and sensitivity-E. 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 NO current leukocytosis, afebrile, no acute co back pain. - Await outside records (5) COVID-19: Plan: - Positive on admission, pt is vaccinated x 3, reports having infection in September 2021 and remains positive. He has a dry cough since then, but no other respiratory symptoms. - O2 sats are stable on room air. -Denies any significant COVID 19 infection symptoms -We will recheck COVID-19 virus before discharge DVT ppx: teds, scds, heparin subq CODE: DNR/DNI Dispo: From [facility], likely discharge within 1-2 days. Admission and Anticipated Discharge Date Admission Date: January 18, 2022 Subjective 01/19/2022 The patient was seen and examined in medical telemetry unit He has been complaining of weakness and minimal cough which has been ongoing Has had minimal urinary symptoms Denies any nausea and or vomiting 01/20/2022 The patient was seen and examined in medical telemetry unit He remains weak and lethargic and complains of pain in the right hip joint He does not want to participate in physical therapy Denies any shortness of breath and/or cough Review of Systems Review of Systems: All systems reviewed and are unremarkable except as noted below Musculoskeletal: No acute arthritis in any joint Neurologic: Generally weak Physical Exam Physical Exam: Lying in bed comfortably Constitutional: well developed, well nourished, + ill appearing and + obese Eyes: PERRL, conjunctivae normal, anicteric sclerae ENMT: external ear and nose normal, oropharynx normal Neck: trachea midline, no thyromegaly Respiratory: no respiratory distress and no labored breathing Auscultation: + diminished lung sounds; no crackles Cardiovascular: Rate/Rhythm: regular rate, regular rhythm and + tachycardic Heart Sounds: normal S1 and normal S2; no murmur Extremities: no edema Gastrointestinal (Abdomen): Inspection/Auscultation: normal bowel sounds; abdomen not distended Percussion/Palpation: abdomen soft; abdomen nontender Musculoskeletal: No acute arthritis involving any joint and right hip joint is not painful with movement Neurologic: Alert, awake and oriented x3. No focal sensory or motor deficit appreciated but remains generally weak Psychiatric: A+Ox3, euthymic affect Lymphatic: no cervical or axillary lymphadenopathy Results & Data Results & Data ([facility]) Vital Signs (Past 12 Hours) Vital Signs Temp Pulse Pulse Resp BP Pulse Ox 01/20/22 16:19 97 H 01/20/22 15:45 36.5 C 98 H 16 120/80 100 01/20/22 11:20 36.5 C 100 H 16 114/77 97 01/20/22 08:14 36.5 C 105 H 16 129/86 99 01/20/22 07:25 103 H Laboratory Results Short CBC 01/20/22 Range/Units 09:34 WBC 7.98 (4.8-10.8) K/uL Hgb 9.4 L (14.0-18.0) g/dL Hct 28.1 L (42-52) % Plt Count 315 (130-400) K/uL BMP 01/20/22 09:34 Sodium 134 L Potassium 4.0 Chloride 107 Carbon Dioxide 19 L BUN 29 H Creatinine 2.13 H Glucose 106 H Calcium 8.4 L Medications Administered Current Inpatient Medications Acetaminophen (Acetaminophen 325 Mg Tab) 650 mg PO Q6H PRN PRN Reason: FEVER/PAIN Stop: 02/17/22 22:41 Last Admin: 01/19/22 19:55 Dose: 650 mg Documented by: Ascorbic Acid (Ascorbic Acid 500 Mg Tab) 500 mg PO DAILY [facility] Stop: 02/18/22 08:59 Last Admin: 01/20/22 09:07 Dose: 500 mg Documented by: Carvedilol (Carvedilol 3.125 Mg Tab) 3.125 mg PO BIDM [facility] Stop: 02/18/22 07:59 Last Admin: 01/20/22 09:07 Dose: 3.125 mg Documented by: Doxycycline Hyclate (Doxycycline Hyclate 100 Mg Cap) 100 mg PO Q12H [facility] Stop: 02/18/22 06:59 Last Admin: 01/20/22 06:05 Dose: 100 mg Documented by: Enoxaparin Sodium (Enoxaparin Inj 40 Mg/0.4 Ml Syr) 40 mg SQ QAM [facility] Stop: 02/20/22 08:59 Ferrous Sulfate (Ferrous Sulfate 325 Mg Tab) 325 mg PO DAILY [facility] Stop: 02/18/22 08:59 Last Admin: 01/20/22 09:07 Dose: 325 mg Documented by: Fluticasone Propionate (Fluticasone Propionate Na Spr 16 Gm Btl) 2 sprays NA DAILY [facility] Stop: 02/18/22 08:59 Last Admin: 01/20/22 09:07 Dose: 2 sprays Documented by: Guaifenesin (Guaifenesin Sugar Free 200 Mg/10 Ml Udc) 400 mg PO BID PRN PRN Reason: Cough Stop: 02/17/22 23:03 Ceftriaxone Sodium 2,000 mg/ (Dextrose) 70 mls @ 140 mls/hr IV Q24H [facility] Stop: 01/24/22 05:59 Last Infusion: 01/20/22 06:39 Dose: Infused Documented by: Sodium Chloride (Nss 1000ml) 1,000 mls @ 80 mls/hr IV .[id number] [facility] Stop: 01/21/22 01:44 Last Admin: 01/20/22 15:41 Dose: 80 mls/hr Documented by: Lactobacillus Acidophilus (Advanced Probiotic 1250 Mg Capsule) 2 cap PO BID [facility] Stop: 02/18/22 08:59 Last Admin: 01/20/22 09:07 Dose: 2 cap Documented by: Loratadine (Loratadine 10 Mg Tab) 10 mg PO DAILY [facility] Stop: 02/18/22 08:59 Last Admin: 01/20/22 09:07 Dose: 10 mg Documented by: Ondansetron HCl (Ondansetron Inj 2 Mg/Ml 2 Ml Vial) 4 mg IV Q4H PRN PRN Reason: Nausea And Vomiting Stop: 02/17/22 22:41 Pantoprazole Sodium (Pantoprazole 40 Mg Tab) 40 mg PO BID PRN PRN Reason: Nausea Stop: 02/17/22 22:53 Thiamine HCl (Thiamine Hcl 100 Mg Tab) 100 mg PO DAILY [facility] Stop: 02/18/22 08:59 Last Admin: 01/20/22 09:07 Dose: 100 mg Documented by: Tramadol HCl (Tramadol Hcl 50 Mg Tablet) 50 mg PO Q8H PRN PRN Reason: Pain Stop: 02/17/22 19:18 Last Admin: 01/20/22 09:07 Dose: 50 mg Documented by:
[2022-01-20] MEDS: ACETAMINOPHEN 325 MG TAB PO PRN (17:45)
[2022-01-21] MEDS: ACETAMINOPHEN 325 MG TAB PO PRN ×4 (00:13→22:10)
[2022-01-21] MEDS: DOXYCYCLINE HYCLATE 100 MG CAP PO SCH ×2 (06:00→18:34)
[2022-01-21] MEDS: cefTRIAXone SODIUM 2,000 MG in DEXTROSE 5% 50 ML IV SCH (06:00)
[2022-01-21] MEDS: ENOXAPARIN INJ 40 MG/0.4 ML SYR SQ SCH (09:14)
[2022-01-21] MEDS: FLUTICASONE PROPIONATE NA SPR 16 GM BTL SCH (09:14)
[2022-01-21] MEDS: ADVANCED PROBIOTIC 1250 MG CAPSULE PO SCH ×2 (09:14→20:17)
[2022-01-21] MEDS: carvediloL 3.125 MG TAB PO SCH ×2 (09:14→18:34)
[2022-01-21] MEDS: THIAMINE HCL 100 MG TAB PO SCH (09:14)
[2022-01-21] MEDS: LORATADINE 10 MG TAB PO SCH (09:14)
[2022-01-21] MEDS: FERROUS SULFATE 325 MG TAB PO SCH (09:14)
[2022-01-21] MEDS: ASCORBIC ACID 500 MG TAB PO SCH (09:15)
[2022-01-21] MEDS: cephALEXin 250 MG CAP PO SCH ×2 (14:30→20:17)
--- NOTE | 2022-01-21 14:48 | Hospitalist Progress Note ---
Date of Service January 21, 2022 Assessment & Plan (1) CADEN (acute kidney injury): Plan: Likely secondary to dehydration Creatinine is minimally improved at 2.26 from 2.70 as of yesterday Will give a small dose of intravenous fluid and monitor PRP Creatinine has been improving which is at 2.13 as of 01/20/2022 Was advised to drink more fluid We will check PRP tomorrow (2) Acute UTI (urinary tract infection): Plan: - Admit - HOLD home lasix, spironolactone and potassium for now - Cr. 2.7 on admission, trend with am labs, outpatient labs were reported to be >3. Unknown baseline. - Continue IV rocephin IV for now, allow doxycycline with hx of osteomyeltiis and chronic back issues - Consider nephrology consult, unlikely that he has established with a nutrition services worker as he just moved to the area last Saturday. - UA appears to be acutely infected, follow urine culture - Avoid nephrotoxins and renally reduce medications - HIM consulted for outside hospital records, [place], [place] -Awaiting culture and sensitivity-E. 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 NO current leukocytosis, afebrile, no acute co back pain. - Await outside records (5) COVID-19: Plan: - Positive on admission, pt is vaccinated x 3, reports having infection in September 2021 and remains positive. He has a dry cough since then, but no other respiratory symptoms. - O2 sats are stable on room air. -Denies any significant COVID 19 infection symptoms -We will recheck COVID-19 virus before discharge -We will get another COVID test today DVT ppx: teds, scds, heparin subq CODE: DNR/DNI Dispo: From [facility], likely discharge within 1-2 days. Will need PT and OT evaluation prior to discharge may be tomorrow Admission and Anticipated Discharge Date Admission Date: January 18, 2022 Subjective 01/19/2022 The patient was seen and examined in medical telemetry unit He has been complaining of weakness and minimal cough which has been ongoing Has had minimal urinary symptoms Denies any nausea and or vomiting 01/20/2022 The patient was seen and examined in medical telemetry unit He remains weak and lethargic and complains of pain in the right hip joint He does not want to participate in physical therapy Denies any shortness of breath and/or cough 01/21/2022 The patient was seen and examined in medical telemetry unit He has been very noncompliant and wants to get out of the hospital He has not been participating in physical therapy Denies any cough and/or shortness of breath Review of Systems Review of Systems: All systems reviewed and are unremarkable except as noted below Musculoskeletal: No acute arthritis in any joint Neurologic: Generally weak Physical Exam Physical Exam: Lying in bed comfortably Constitutional: well developed, well nourished, + ill appearing and + obese Eyes: PERRL, conjunctivae normal, anicteric sclerae ENMT: external ear and nose normal, oropharynx normal Neck: trachea midline, no thyromegaly Respiratory: no respiratory distress and no labored breathing Auscultation: + diminished lung sounds; no crackles Cardiovascular: Rate/Rhythm: regular rate, regular rhythm and + tachycardic Heart Sounds: normal S1 and normal S2; no murmur Extremities: no edema Gastrointestinal (Abdomen): Inspection/Auscultation: normal bowel sounds; abdomen not distended Percussion/Palpation: abdomen soft; abdomen nontender Musculoskeletal: No acute arthritis in any joint Neurologic: Alert, awake and oriented x3 Psychiatric: A+Ox3, euthymic affect Lymphatic: no cervical or axillary lymphadenopathy Results & Data Results & Data ([facility]) Vital Signs (Past 12 Hours) Vital Signs Temp Pulse Pulse Resp BP BP Pulse Ox 01/21/22 11:32 36.3 C L 102 H 111/79 98 01/21/22 07:46 90 01/21/22 07:36 36.5 C 97 H 123/79 100 01/21/22 03:25 36.4 C L 96 H 20 122/84 97 Medications Administered Current Inpatient Medications Acetaminophen (Acetaminophen 325 Mg Tab) 650 mg PO Q6H PRN PRN Reason: FEVER/PAIN Stop: 02/17/22 22:41 Last Admin: 01/21/22 14:30 Dose: 650 mg Documented by: Ascorbic Acid (Ascorbic Acid 500 Mg Tab) 500 mg PO DAILY [facility] Stop: 02/18/22 08:59 Last Admin: 01/21/22 09:15 Dose: 500 mg Documented by: Carvedilol (Carvedilol 3.125 Mg Tab) 3.125 mg PO BIDM [facility] Stop: 02/18/22 07:59 Last Admin: 01/21/22 09:14 Dose: 3.125 mg Documented by: Cephalexin HCl (Cephalexin 250 Mg Cap) 250 mg PO TID [facility]; Protocol Stop: 01/26/22 13:59 Last Admin: 01/21/22 14:30 Dose: 250 mg Documented by: Doxycycline Hyclate (Doxycycline Hyclate 100 Mg Cap) 100 mg PO Q12H [facility] Stop: 02/18/22 06:59 Last Admin: 01/21/22 06:00 Dose: 100 mg Documented by: Enoxaparin Sodium (Enoxaparin Inj 40 Mg/0.4 Ml Syr) 40 mg SQ QAM [facility] Stop: 02/20/22 08:59 Last Admin: 01/21/22 09:14 Dose: 40 mg Documented by: Ferrous Sulfate (Ferrous Sulfate 325 Mg Tab) 325 mg PO DAILY [facility] Stop: 02/18/22 08:59 Last Admin: 01/21/22 09:14 Dose: 325 mg Documented by: Fluticasone Propionate (Fluticasone Propionate Na Spr 16 Gm Btl) 2 sprays NA DAILY [facility] Stop: 02/18/22 08:59 Last Admin: 01/21/22 09:14 Dose: 2 sprays Documented by: Guaifenesin (Guaifenesin Sugar Free 200 Mg/10 Ml Udc) 400 mg PO BID PRN PRN Reason: Cough Stop: 02/17/22 23:03 Lactobacillus Acidophilus (Advanced Probiotic 1250 Mg Capsule) 2 cap PO BID [facility] Stop: 02/18/22 08:59 Last Admin: 01/21/22 09:14 Dose: 2 cap Documented by: Loratadine (Loratadine 10 Mg Tab) 10 mg PO DAILY [facility] Stop: 02/18/22 08:59 Last Admin: 01/21/22 09:14 Dose: 10 mg Documented by: Ondansetron HCl (Ondansetron Inj 2 Mg/Ml 2 Ml Vial) 4 mg IV Q4H PRN PRN Reason: Nausea And Vomiting Stop: 02/17/22 22:41 Pantoprazole Sodium (Pantoprazole 40 Mg Tab) 40 mg PO BID PRN PRN Reason: Nausea Stop: 02/17/22 22:53 Thiamine HCl (Thiamine Hcl 100 Mg Tab) 100 mg PO DAILY [facility] Stop: 02/18/22 08:59 Last Admin: 01/21/22 09:14 Dose: 100 mg Documented by: Tramadol HCl (Tramadol Hcl 50 Mg Tablet) 50 mg PO Q8H PRN PRN Reason: Pain Stop: 02/17/22 19:18 Last Admin: 01/20/22 09:07 Dose: 50 mg Documented by:
[2022-01-21 17:59] LABS: Influenza A virus by PCR Negative (Neg); Influenza B virus by PCR Negative (Neg); RSV by PCR Negative (Neg); SARS CoV2 RNA(COVID-19) InHosp NEGATIVE (Negative)
[2022-01-22] MEDS: DOXYCYCLINE HYCLATE 100 MG CAP PO SCH ×2 (06:05→18:11)
[2022-01-22 09:14] LABS: Basophils # (auto) 0.01 K/uL (0-0.2); Basophils % (auto) 0.1 %; Hematocrit (blood only) 30.7 % (42-52); Hemoglobin 10.2 g/dL (14.0-18.0); Immature Granulocytes # (auto) 0.09 K/uL (0.00-0.02); Immature Granulocytes % (auto) 1.2 %; Lymphocytes # (auto) 1.59 K/uL (1.2-3.4); Lymphocytes % (auto) 21.2 %; Mean Corpuscular Hemoglobin 30.4 pg (25-34); Mean Corpuscular Hgb Conc 33.2 g/dL (32-36); Mean Corpuscular Volume 91.6 fL (80-100); Mean Platelet Volume 9.3 fL (7.4-10.4); Monocytes # (auto) 0.56 K/uL (0.11-0.59); Monocytes % (auto) 7.5 %; Neutrophils # (auto) 4.96 K/uL (1.4-6.5); Platelet Count 328 K/uL (130-400); RDW Coefficient of Variation 13.4 % (11.5-14.5); Red Blood Count 3.35 M/uL (4.7-6.1); White Blood Count 7.51 K/uL (4.8-10.8)
[2022-01-22] MEDS: carvediloL 3.125 MG TAB PO SCH ×2 (09:27→16:29)
[2022-01-22] MEDS: ENOXAPARIN INJ 40 MG/0.4 ML SYR SQ SCH (09:28)
[2022-01-22] MEDS: FERROUS SULFATE 325 MG TAB PO SCH (09:28)
[2022-01-22] MEDS: ASCORBIC ACID 500 MG TAB PO SCH (09:28)
[2022-01-22] MEDS: FLUTICASONE PROPIONATE NA SPR 16 GM BTL SCH (09:28)
[2022-01-22] MEDS: cephALEXin 250 MG CAP PO SCH ×3 (09:28→20:29)
[2022-01-22] MEDS: LORATADINE 10 MG TAB PO SCH (09:29)
[2022-01-22] MEDS: THIAMINE HCL 100 MG TAB PO SCH (09:29)
[2022-01-22] MEDS: ADVANCED PROBIOTIC 1250 MG CAPSULE PO SCH ×2 (09:29→20:29)
[2022-01-22 09:36] LABS: BUN Creatinine Ratio 12.4 (10-20); Calcium 8.8 mg/dl (8.5-10.1); Creatinine Clr Calc Pharmacy 37.5 ml/min; Est GFR (African American) 36.8 ml/min; Est GFR (Non-African American) 31.7 ml/min; Potassium 3.9 mmol/L (3.5-5.1)
[2022-01-22] MEDS: ACETAMINOPHEN 325 MG TAB PO PRN ×2 (09:37→16:28)
[2022-01-22] MEDS: traMADol HCL 50 MG TABLET PO PRN (14:24)
--- NOTE | 2022-01-22 17:34 | Hospitalist Progress Note ---
Date of Service January 22, 2022 Assessment & Plan (1) CADEN (acute kidney injury): Plan: Likely secondary to dehydration Creatinine is minimally improved at 2.26 from 2.70 as of yesterday Will give a small dose of intravenous fluid and monitor PRP Creatinine has been improving which is at 2.13 as of 01/20/2022 Was advised to drink more fluid We will check PRP tomorrow- creatinine has improved to 2.01 but he still remains dehydrated with BUN of 25 Strongly advised to drink more fluid (2) Acute UTI (urinary tract infection): Plan: - Admit - HOLD home lasix, spironolactone and potassium for now - Cr. 2.7 on admission, trend with am labs, outpatient labs were reported to be >3. Unknown baseline. 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 - UA appears to be acutely infected, follow urine culture - Avoid nephrotoxins and renally reduce medications - HIM consulted for outside hospital records, [place], [place] -Awaiting culture and sensitivity-E. coli sensitive to cephalosporins, levofloxacin, sulfa and nitrofurantoin -Ceftriaxone has been discontinued and started with Keflex to 50 mg 3 times daily -Denies any more symptoms of UTI Remains borderline tachycardic Has been tachycardic throughout his whole life Denies any symptoms We will continue current beta-tari (3) Hypertension: Plan: - Cont carvedilol, holding spironolactone and lasix as above - Check 2D echo-LV is normal in size, there is mild concentric LVH, LV systolic function is normal with EF of more than 70% - EKG reviewed, monitor on tele - NO cardiac complaints presently -Remains stable (4) Osteomyelitis of lumbar spine: Plan: - Hx of such, continue with doxycyline. NO current leukocytosis, afebrile, no acute co back pain. - Await outside records (5) COVID-19: Plan: - Positive on admission, pt is vaccinated x 3, reports having infection in September 2021 and remains positive. He has a dry cough since then, but no other respiratory symptoms. - O2 sats are stable on room air. -Denies any significant COVID 19 infection symptoms -We will recheck COVID-19 virus before discharge -We will get another COVID test today-came back negative -Discussed with infectious disease and will need to have another test before he can be taken off isolation DVT ppx: teds, scds, heparin subq CODE: DNR/DNI Dispo: From [facility], likely discharge within 1-2 days. Will need PT and OT evaluation prior to discharge may be tomorrow Admission and Anticipated Discharge Date Admission Date: January 18, 2022 Subjective 01/19/2022 The patient was seen and examined in medical telemetry unit He has been complaining of weakness and minimal cough which has been ongoing Has had minimal urinary symptoms Denies any nausea and or vomiting 01/20/2022 The patient was seen and examined in medical telemetry unit He remains weak and lethargic and complains of pain in the right hip joint He does not want to participate in physical therapy Denies any shortness of breath and/or cough 01/21/2022 The patient was seen and examined in medical telemetry unit He has been very noncompliant and wants to get out of the hospital He has not been participating in physical therapy Denies any cough and/or shortness of breath 01/22/2022 The patient was seen and examined in medical telemetry unit He has been stable but remains generally weak and lethargic He has had physical therapy and recommended to have rehab His COVID test came back negative and will do another test today to take him off the isolation if negative Review of Systems Review of Systems: All systems reviewed and are unremarkable except as noted below Musculoskeletal: No acute arthritis in any joint Neurologic: Generally weak Physical Exam Physical Exam: Lying in bed comfortably Constitutional: well developed, well nourished, + ill appearing and + obese Eyes: PERRL, conjunctivae normal, anicteric sclerae ENMT: external ear and nose normal, oropharynx normal Neck: trachea midline, no thyromegaly Respiratory: no respiratory distress and no labored breathing Auscultation: + diminished lung sounds; no crackles Cardiovascular: Rate/Rhythm: regular rate, regular rhythm and + tachycardic Heart Sounds: normal S1 and normal S2; no murmur Extremities: no edema Gastrointestinal (Abdomen): Inspection/Auscultation: normal bowel sounds; abdomen not distended Percussion/Palpation: abdomen soft; abdomen nontender Musculoskeletal: No acute arthritis involving any joint. Has chronic back pain and difficulty with ambulation Neurologic: Alert, awake and oriented x3. Generally weak and lethargic Psychiatric: A+Ox3, euthymic affect Lymphatic: no cervical or axillary lymphadenopathy Results & Data Results & Data ([facility]) Vital Signs (Past 12 Hours) Vital Signs Temp Pulse Pulse Resp BP Pulse Ox Pulse Ox 01/22/22 15:02 36.3 C L 114 H 20 128/88 97 01/22/22 11:53 99 01/22/22 11:00 105 H 01/22/22 07:34 36.3 C L 113 H 20 128/87 98 Pulse Ox 01/22/22 15:02 01/22/22 11:53 100 01/22/22 11:00 01/22/22 07:34 Laboratory Results Short CBC 01/22/22 Range/Units 08:44 WBC 7.51 (4.8-10.8) K/uL Hgb 10.2 L (14.0-18.0) g/dL Hct 30.7 L (42-52) % Plt Count 328 (130-400) K/uL BMP 01/22/22 08:44 Sodium 134 L Potassium 3.9 Chloride 104 Carbon Dioxide 21 BUN 25 H Creatinine 2.01 H Glucose 106 H Calcium 8.8 Medications Administered Current Inpatient Medications Acetaminophen (Acetaminophen 325 Mg Tab) 650 mg PO Q6H PRN PRN Reason: FEVER/PAIN Stop: 02/17/22 22:41 Last Admin: 01/22/22 16:28 Dose: 650 mg Documented by: Ascorbic Acid (Ascorbic Acid 500 Mg Tab) 500 mg PO DAILY [facility] Stop: 02/18/22 08:59 Last Admin: 01/22/22 09:28 Dose: 500 mg Documented by: Carvedilol (Carvedilol 3.125 Mg Tab) 3.125 mg PO BIDM [facility] Stop: 02/18/22 07:59 Last Admin: 01/22/22 16:29 Dose: 3.125 mg Documented by: Cephalexin HCl (Cephalexin 250 Mg Cap) 250 mg PO TID [facility]; Protocol Stop: 01/26/22 13:59 Last Admin: 01/22/22 13:29 Dose: 250 mg Documented by: Doxycycline Hyclate (Doxycycline Hyclate 100 Mg Cap) 100 mg PO Q12H [facility] Stop: 02/18/22 06:59 Last Admin: 01/22/22 06:05 Dose: 100 mg Documented by: Enoxaparin Sodium (Enoxaparin Inj 40 Mg/0.4 Ml Syr) 40 mg SQ QAM [facility] Stop: 02/20/22 08:59 Last Admin: 01/22/22 09:28 Dose: 40 mg Documented by: Ferrous Sulfate (Ferrous Sulfate 325 Mg Tab) 325 mg PO DAILY [facility] Stop: 02/18/22 08:59 Last Admin: 01/22/22 09:28 Dose: 325 mg Documented by: Fluticasone Propionate (Fluticasone Propionate Na Spr 16 Gm Btl) 2 sprays NA DAILY [facility] Stop: 02/18/22 08:59 Last Admin: 01/22/22 09:28 Dose: 2 sprays Documented by: Guaifenesin (Guaifenesin Sugar Free 200 Mg/10 Ml Udc) 400 mg PO BID PRN PRN Reason: Cough Stop: 02/17/22 23:03 Lactobacillus Acidophilus (Advanced Probiotic 1250 Mg Capsule) 2 cap PO BID [facility] Stop: 02/18/22 08:59 Last Admin: 01/22/22 09:29 Dose: 2 cap Documented by: Loratadine (Loratadine 10 Mg Tab) 10 mg PO DAILY [facility] Stop: 02/18/22 08:59 Last Admin: 01/22/22 09:29 Dose: 10 mg Documented by: Ondansetron HCl (Ondansetron Inj 2 Mg/Ml 2 Ml Vial) 4 mg IV Q4H PRN PRN Reason: Nausea And Vomiting Stop: 02/17/22 22:41 Pantoprazole Sodium (Pantoprazole 40 Mg Tab) 40 mg PO BID PRN PRN Reason: Nausea Stop: 02/17/22 22:53 Thiamine HCl (Thiamine Hcl 100 Mg Tab) 100 mg PO DAILY [facility] Stop: 02/18/22 08:59 Last Admin: 01/22/22 09:29 Dose: 100 mg Documented by: Tramadol HCl (Tramadol Hcl 50 Mg Tablet) 50 mg PO Q8H PRN PRN Reason: Pain Stop: 02/17/22 19:18 Last Admin: 01/22/22 14:24 Dose: 50 mg Documented by:
[2022-01-22] MEDS ORDERED: MELATONIN 3 MG TAB PO PRN (21:16)
[2022-01-23] MEDS: ACETAMINOPHEN 325 MG TAB PO PRN ×3 (00:02→17:24)
[2022-01-23] MEDS: DOXYCYCLINE HYCLATE 100 MG CAP PO SCH ×2 (06:21→18:08)
[2022-01-23 06:35] LABS: Creatinine Clr Calc Pharmacy 37.5 ml/min; Est GFR (African American) 36.8 ml/min; Est GFR (Non-African American) 31.7 ml/min
[2022-01-23] MEDS: ADVANCED PROBIOTIC 1250 MG CAPSULE PO SCH ×2 (08:54→21:29)
[2022-01-23] MEDS: LORATADINE 10 MG TAB PO SCH (08:54)
[2022-01-23] MEDS: cephALEXin 250 MG CAP PO SCH ×3 (08:54→21:29)
[2022-01-23] MEDS: FERROUS SULFATE 325 MG TAB PO SCH (08:54)
[2022-01-23] MEDS: THIAMINE HCL 100 MG TAB PO SCH (08:54)
[2022-01-23] MEDS: FLUTICASONE PROPIONATE NA SPR 16 GM BTL SCH (08:55)
[2022-01-23] MEDS: ASCORBIC ACID 500 MG TAB PO SCH (08:55)
[2022-01-23] MEDS: ENOXAPARIN INJ 40 MG/0.4 ML SYR SQ SCH (08:55)
[2022-01-23] MEDS: carvediloL 3.125 MG TAB PO SCH ×2 (08:55→17:22)
--- NOTE | 2022-01-23 15:42 | Hospitalist Progress Note ---
Date of Service January 23, 2022 Assessment & Plan (1) CADEN (acute kidney injury): Plan: Likely secondary to dehydration Creatinine is minimally improved at 2.26 from 2.70 as of yesterday Will give a small dose of intravenous fluid and monitor PRP Creatinine has been improving which is at 2.13 as of 01/20/2022 Was advised to drink more fluid We will check PRP tomorrow- creatinine has improved to 2.01 but he still remains dehydrated with BUN of 25 Strongly advised to drink more fluid Creatinine has been improving-was advised to drink more fluid (2) Acute UTI (urinary tract infection): Plan: - Admit - HOLD home lasix, spironolactone and potassium for now - Cr. 2.7 on admission, trend with am labs, outpatient labs were reported to be >3. Unknown baseline. - Continue IV rocephin IV for now, allow doxycycline with hx of osteomyeltiis and chronic back issues - Consider nephrology consult, unlikely that he has established with a home service advisor as he just moved to the area last Saturday. - UA appears to be acutely infected, follow urine culture - Avoid nephrotoxins and renally reduce medications - HIM consulted for outside hospital records, [place], [place] -Awaiting culture and sensitivity-E. coli sensitive to cephalosporins, levofloxacin, sulfa and nitrofurantoin -Ceftriaxone has been discontinued and started with Keflex to 50 mg 3 times daily -Denies any more symptoms of UTI Remains borderline tachycardic Has been tachycardic throughout his whole life Denies any symptoms We will continue current beta-tari Has been tachycardic throughout his whole life (3) Hypertension: Plan: - Cont carvedilol, holding spironolactone and lasix as above - Check 2D echo-LV is normal in size, there is mild concentric LVH, LV systolic function is normal with EF of more than 70% - EKG reviewed, monitor on tele - NO cardiac complaints presently -Remains stable (4) Osteomyelitis of lumbar spine: Plan: - Hx of such, continue with doxycyline. NO current leukocytosis, afebrile, no acute co back pain. - Await outside records -We will continue current antibiotic the way he has been getting it (5) COVID-19: Plan: - Positive on admission, pt is vaccinated x 3, reports having infection in September 2021 and remains positive. He has a dry cough since then, but no other respiratory symptoms. - O2 sats are stable on room air. -Denies any significant COVID 19 infection symptoms -We will recheck COVID-19 virus before discharge -We will get another COVID test today-came back negative -Discussed with infectious disease and will need to have another test before he can be taken off isolation -He is off isolation as COVID test x2 24 hours apart remain negative DVT ppx: teds, scds, heparin subq CODE: DNR/DNI Dispo: From [facility], likely discharge within 1-2 days. Will need PT and OT evaluation prior to discharge may be tomorrow Discharged to [facility] tomorrow Admission and Anticipated Discharge Date Admission Date: January 18, 2022 Subjective 01/19/2022 The patient was seen and examined in medical telemetry unit He has been complaining of weakness and minimal cough which has been ongoing Has had minimal urinary symptoms Denies any nausea and or vomiting 01/20/2022 The patient was seen and examined in medical telemetry unit He remains weak and lethargic and complains of pain in the right hip joint He does not want to participate in physical therapy Denies any shortness of breath and/or cough 01/21/2022 The patient was seen and examined in medical telemetry unit He has been very noncompliant and wants to get out of the hospital He has not been participating in physical therapy Denies any cough and/or shortness of breath 01/22/2022 The patient was seen and examined in medical telemetry unit He has been stable but remains generally weak and lethargic He has had physical therapy and recommended to have rehab His COVID test came back negative and will do another test today to take him off the isolation if negative 01/23/2022 The patient was seen and examined in medical telemetry unit He has been awaiting to go to rehab Was advised to drink more fluid as he remains dehydrated and tachycardic No respiratory symptoms and COVID is negative Review of Systems Review of Systems: All systems reviewed and are unremarkable except as noted below Musculoskeletal: No acute arthritis in any joint Neurologic: Generally weak Physical Exam Physical Exam: Lying in bed comfortably Constitutional: well developed, well nourished, + ill appearing and + obese Eyes: PERRL, conjunctivae normal, anicteric sclerae ENMT: external ear and nose normal, oropharynx normal Neck: trachea midline, no thyromegaly Respiratory: no respiratory distress and no labored breathing Auscultation: + diminished lung sounds; no crackles Cardiovascular: Rate/Rhythm: regular rate, regular rhythm and + tachycardic Heart Sounds: normal S1 and normal S2; no murmur Extremities: no edema Gastrointestinal (Abdomen): Inspection/Auscultation: normal bowel sounds; abdomen not distended Percussion/Palpation: abdomen soft; abdomen nontender Musculoskeletal: Has chronic back pain with history of chronic osteomyelitis Neurologic: Alert, awake and oriented x3. Generally weak Psychiatric: A+Ox3, euthymic affect Lymphatic: no cervical or axillary lymphadenopathy Results & Data Results & Data ([facility]) Vital Signs (Past 12 Hours) Vital Signs Temp Pulse Pulse Resp BP Pulse Ox 01/23/22 14:58 36.3 C L 108 H 18 103/72 98 01/23/22 11:22 36.3 C L 108 H 20 102/72 98 01/23/22 10:00 102 H 01/23/22 07:34 36.5 C 108 H 20 115/81 97 Laboratory Results [facility] 01/23/22 05:50 Creatinine 2.01 H Medications Administered Current Inpatient Medications Acetaminophen (Acetaminophen 325 Mg Tab) 650 mg PO Q6H PRN PRN Reason: FEVER/PAIN Stop: 02/17/22 22:41 Last Admin: 01/23/22 08:53 Dose: 650 mg Documented by: Ascorbic Acid (Ascorbic Acid 500 Mg Tab) 500 mg PO DAILY [facility] Stop: 02/18/22 08:59 Last Admin: 01/23/22 08:55 Dose: 500 mg Documented by: Carvedilol (Carvedilol 3.125 Mg Tab) 3.125 mg PO BIDM [facility] Stop: 02/18/22 07:59 Last Admin: 01/23/22 08:55 Dose: 3.125 mg Documented by: Cephalexin HCl (Cephalexin 250 Mg Cap) 250 mg PO TID [facility]; Protocol Stop: 01/26/22 13:59 Last Admin: 01/23/22 15:14 Dose: 250 mg Documented by: Doxycycline Hyclate (Doxycycline Hyclate 100 Mg Cap) 100 mg PO Q12H [facility] Stop: 02/18/22 06:59 Last Admin: 01/23/22 06:21 Dose: 100 mg Documented by: Enoxaparin Sodium (Enoxaparin Inj 40 Mg/0.4 Ml Syr) 40 mg SQ QAM [facility] Stop: 02/20/22 08:59 Last Admin: 01/23/22 08:55 Dose: 40 mg Documented by: Ferrous Sulfate (Ferrous Sulfate 325 Mg Tab) 325 mg PO DAILY [facility] Stop: 02/18/22 08:59 Last Admin: 01/23/22 08:54 Dose: 325 mg Documented by: Fluticasone Propionate (Fluticasone Propionate Na Spr 16 Gm Btl) 2 sprays NA DAILY [facility] Stop: 02/18/22 08:59 Last Admin: 01/23/22 08:55 Dose: 2 sprays Documented by: Guaifenesin (Guaifenesin Sugar Free 200 Mg/10 Ml Udc) 400 mg PO BID PRN PRN Reason: Cough Stop: 02/17/22 23:03 Lactobacillus Acidophilus (Advanced Probiotic 1250 Mg Capsule) 2 cap PO BID [facility] Stop: 02/18/22 08:59 Last Admin: 01/23/22 08:54 Dose: 2 cap Documented by: Loratadine (Loratadine 10 Mg Tab) 10 mg PO DAILY [facility] Stop: 02/18/22 08:59 Last Admin: 01/23/22 08:54 Dose: 10 mg Documented by: Melatonin (Melatonin 3 Mg Tab) 3 mg PO HS PRN PRN Reason: Sleep Stop: 02/21/22 21:15 Last Admin: 01/22/22 21:42 Dose: 3 mg Documented by: Ondansetron HCl (Ondansetron Inj 2 Mg/Ml 2 Ml Vial) 4 mg IV Q4H PRN PRN Reason: Nausea And Vomiting Stop: 02/17/22 22:41 Pantoprazole Sodium (Pantoprazole 40 Mg Tab) 40 mg PO BID PRN PRN Reason: Nausea Stop: 02/17/22 22:53 Thiamine HCl (Thiamine Hcl 100 Mg Tab) 100 mg PO DAILY [facility] Stop: 02/18/22 08:59 Last Admin: 01/23/22 08:54 Dose: 100 mg Documented by: Tramadol HCl (Tramadol Hcl 50 Mg Tablet) 50 mg PO Q8H PRN PRN Reason: Pain Stop: 02/17/22 19:18 Last Admin: 01/22/22 14:24 Dose: 50 mg Documented by:
[2022-01-24] MEDS: ACETAMINOPHEN 325 MG TAB PO PRN ×2 (00:58→09:20)
[2022-01-24] MEDS: DOXYCYCLINE HYCLATE 100 MG CAP PO SCH (06:37)
[2022-01-24 07:19] LABS: Basophils # (auto) 0.02 K/uL (0-0.2); Basophils % (auto) 0.3 %; Eosinophils # (auto) 0.26 K/uL (0-0.5); Eosinophils % (auto) 4.2 %; Hemoglobin 9.7 g/dL (14.0-18.0); Immature Granulocytes # (auto) 0.04 K/uL (0.00-0.02); Immature Granulocytes % (auto) 0.6 %; Mean Corpuscular Hemoglobin 30.8 pg (25-34); Mean Corpuscular Hgb Conc 33.4 g/dL (32-36); Mean Corpuscular Volume 92.1 fL (80-100); Mean Platelet Volume 9.4 fL (7.4-10.4); Monocytes # (auto) 0.47 K/uL (0.11-0.59); Monocytes % (auto) 7.6 %; Neutrophils # (auto) 3.29 K/uL (1.4-6.5); Neutrophils % (auto) 53.3 %; Platelet Count 303 K/uL (130-400); RDW Coefficient of Variation 13.5 % (11.5-14.5); RDW Standard Deviation 45.4 fL (36.4-46.3); Red Blood Count 3.15 M/uL (4.7-6.1); White Blood Count 6.18 K/uL (4.8-10.8)
[2022-01-24 07:39] LABS: BUN Creatinine Ratio 17.8 (10-20); Creatinine Clr Calc Pharmacy 37.3 ml/min; Est GFR (African American) 36.6 ml/min; Est GFR (Non-African American) 31.5 ml/min
[2022-01-24] MEDS: ENOXAPARIN INJ 40 MG/0.4 ML SYR SQ SCH (09:12)
[2022-01-24] MEDS: FLUTICASONE PROPIONATE NA SPR 16 GM BTL SCH (09:12)
[2022-01-24] MEDS: FERROUS SULFATE 325 MG TAB PO SCH (09:12)
[2022-01-24] MEDS: THIAMINE HCL 100 MG TAB PO SCH (09:13)
[2022-01-24] MEDS: ADVANCED PROBIOTIC 1250 MG CAPSULE PO SCH (09:13)
[2022-01-24] MEDS: ASCORBIC ACID 500 MG TAB PO SCH (09:13)
[2022-01-24] MEDS: carvediloL 3.125 MG TAB PO SCH (09:13)
[2022-01-24] MEDS: LORATADINE 10 MG TAB PO SCH (09:14)
[2022-01-24] MEDS: cephALEXin 250 MG CAP PO SCH (09:14)
--- NOTE | 2022-01-24 10:15 | Hospitalist Progress Note ---
Date of Service January 24, 2022 Assessment & Plan (1) CADEN (acute kidney injury): Plan: Likely secondary to dehydration Creatinine is minimally improved at 2.26 from 2.70 as of yesterday Will give a small dose of intravenous fluid and monitor PRP Creatinine has been improving which is at 2.13 as of 01/20/2022 Was advised to drink more fluid We will check PRP tomorrow- creatinine has improved to 2.01 but he still remains dehydrated with BUN of 25 Strongly advised to drink more fluid Creatinine has been improving-was advised to drink more fluid Creatinine remains at 2.02 and the patient was advised to drink more fluid (2) Acute UTI (urinary tract infection): Plan: - Admit - HOLD home lasix, spironolactone and potassium for now - Cr. 2.7 on admission, trend with am labs, outpatient labs were reported to be >3. Unknown baseline. - Continue IV rocephin IV for now, allow doxycycline with hx of osteomyeltiis and chronic back issues - Consider nephrology consult, unlikely that he has established with a belt maker helper as he just moved to the area last Saturday. - UA appears to be acutely infected, follow urine culture - Avoid nephrotoxins and renally reduce medications - HIM consulted for outside hospital records, [place], [place] -Awaiting culture and sensitivity-E. coli sensitive to cephalosporins, levofloxacin, sulfa and nitrofurantoin -Ceftriaxone has been discontinued and started with Keflex to 50 mg 3 times daily -Denies any more symptoms of UTI -Antibiotic course is finished Remains borderline tachycardic Has been tachycardic throughout his whole life Denies any symptoms We will continue current beta-tari Has been tachycardic throughout his whole life (3) Hypertension: Plan: - Cont carvedilol, holding spironolactone and lasix as above - Check 2D echo-LV is normal in size, there is mild concentric LVH, LV systolic function is normal with EF of more than 70% - EKG reviewed, monitor on tele - NO cardiac complaints presently -Remains stable and the tachycardia seems to be (4) Osteomyelitis of lumbar spine: Plan: - Hx of such, continue with doxycyline. NO current leukocytosis, afebrile, no acute co back pain. - Await outside records -We will continue current antibiotic the way he has been getting it (5) COVID-19: Plan: - Positive on admission, pt is vaccinated x 3, reports having infection in September 2021 and remains positive. He has a dry cough since then, but no other respiratory symptoms. - O2 sats are stable on room air. -Denies any significant COVID 19 infection symptoms -We will recheck COVID-19 virus before discharge -We will get another COVID test today-came back negative -Discussed with infectious disease and will need to have another test before he can be taken off isolation -He is off isolation as COVID test x2 24 hours apart remain negative -He does not require any isolation precaution for the COVID DVT ppx: teds, scds, heparin subq CODE: DNR/DNI Dispo: From [facility], likely discharge within 1-2 days. Will need PT and OT evaluation prior to discharge may be tomorrow Will be discharged to [facility] this morning Admission and Anticipated Discharge Date Admission Date: January 18, 2022 Subjective 01/19/2022 The patient was seen and examined in medical telemetry unit He has been complaining of weakness and minimal cough which has been ongoing Has had minimal urinary symptoms Denies any nausea and or vomiting 01/20/2022 The patient was seen and examined in medical telemetry unit He remains weak and lethargic and complains of pain in the right hip joint He does not want to participate in physical therapy Denies any shortness of breath and/or cough 01/21/2022 The patient was seen and examined in medical telemetry unit He has been very noncompliant and wants to get out of the hospital He has not been participating in physical therapy Denies any cough and/or shortness of breath 01/22/2022 The patient was seen and examined in medical telemetry unit He has been stable but remains generally weak and lethargic He has had physical therapy and recommended to have rehab His COVID test came back negative and will do another test today to take him off the isolation if negative 01/23/2022 The patient was seen and examined in medical telemetry unit He has been awaiting to go to rehab Was advised to drink more fluid as he remains dehydrated and tachycardic No respiratory symptoms and COVID is negative 01/24/2022 The patient was seen and examined in medical telemetry unit He has been stable and denies any significant symptoms He denies any cough and no shortness of breath, no fever and no chills and his back pain is stable Review of Systems Review of Systems: All systems reviewed and are unremarkable except as noted below Musculoskeletal: No acute arthritis in any joint Neurologic: Generally weak Physical Exam Physical Exam: Lying in bed comfortably Constitutional: well developed, well nourished, + ill appearing and + obese Eyes: PERRL, conjunctivae normal, anicteric sclerae ENMT: external ear and nose normal, oropharynx normal Neck: trachea midline, no thyromegaly Respiratory: no respiratory distress and no labored breathing Auscultation: + diminished lung sounds; no crackles Cardiovascular: Rate/Rhythm: regular rate, regular rhythm and + tachycardic Heart Sounds: normal S1 and normal S2; no murmur Extremities: no edema Gastrointestinal (Abdomen): Inspection/Auscultation: normal bowel sounds; abdomen not distended Percussion/Palpation: abdomen soft; abdomen nontender Musculoskeletal: Has chronic back pain without radiation Neurologic: Alert, awake and oriented x3. Generally weak but no focal sensory or no motor deficit Psychiatric: A+Ox3, euthymic affect Lymphatic: no cervical or axillary lymphadenopathy Results & Data Results & Data ([facility]) Vital Signs (Past 12 Hours) Vital Signs Temp Pulse Pulse Pulse Resp BP BP 01/24/22 08:00 36.5 C 107 H 18 113/80 01/24/22 04:40 36.4 C L 109 H 18 112/79 01/24/22 00:00 104 H 01/23/22 23:01 36.4 C L 105 H 18 110/76 Pulse Ox 01/24/22 08:00 98 01/24/22 04:40 97 01/24/22 00:00 01/23/22 23:01 98 Laboratory Results Short CBC 01/24/22 Range/Units 06:55 WBC 6.18 (4.8-10.8) K/uL Hgb 9.7 L (14.0-18.0) g/dL Hct 29.0 L (42-52) % Plt Count 303 (130-400) K/uL BMP 01/24/22 06:55 Sodium 133 L Potassium 4.0 Chloride 106 Carbon Dioxide 21 BUN 36 H Creatinine 2.02 H Glucose 97 Calcium 9.0 Medications Administered Current Inpatient Medications Acetaminophen (Acetaminophen 325 Mg Tab) 650 mg PO Q6H PRN PRN Reason: FEVER/PAIN Stop: 02/17/22 22:41 Last Admin: 01/24/22 09:20 Dose: 650 mg Documented by: Ascorbic Acid (Ascorbic Acid 500 Mg Tab) 500 mg PO DAILY [facility] Stop: 02/18/22 08:59 Last Admin: 01/24/22 09:13 Dose: 500 mg Documented by: Carvedilol (Carvedilol 3.125 Mg Tab) 3.125 mg PO BIDM [facility] Stop: 02/18/22 07:59 Last Admin: 01/24/22 09:13 Dose: 3.125 mg Documented by: Cephalexin HCl (Cephalexin 250 Mg Cap) 250 mg PO TID [facility]; Protocol Stop: 01/26/22 13:59 Last Admin: 01/24/22 09:14 Dose: 250 mg Documented by: Doxycycline Hyclate (Doxycycline Hyclate 100 Mg Cap) 100 mg PO Q12H [facility] Stop: 02/18/22 06:59 Last Admin: 01/24/22 06:37 Dose: 100 mg Documented by: Enoxaparin Sodium (Enoxaparin Inj 40 Mg/0.4 Ml Syr) 40 mg SQ QAM [facility] Stop: 02/20/22 08:59 Last Admin: 01/24/22 09:12 Dose: 40 mg Documented by: Ferrous Sulfate (Ferrous Sulfate 325 Mg Tab) 325 mg PO DAILY [facility] Stop: 02/18/22 08:59 Last Admin: 01/24/22 09:12 Dose: 325 mg Documented by: Fluticasone Propionate (Fluticasone Propionate Na Spr 16 Gm Btl) 2 sprays NA DAILY [facility] Stop: 02/18/22 08:59 Last Admin: 01/24/22 09:12 Dose: 2 sprays Documented by: Guaifenesin (Guaifenesin Sugar Free 200 Mg/10 Ml Udc) 400 mg PO BID PRN PRN Reason: Cough Stop: 02/17/22 23:03 Lactobacillus Acidophilus (Advanced Probiotic 1250 Mg Capsule) 2 cap PO BID [facility] Stop: 02/18/22 08:59 Last Admin: 01/24/22 09:13 Dose: 2 cap Documented by: Loratadine (Loratadine 10 Mg Tab) 10 mg PO DAILY [facility] Stop: 02/18/22 08:59 Last Admin: 01/24/22 09:14 Dose: 10 mg Documented by: Melatonin (Melatonin 3 Mg Tab) 3 mg PO HS PRN PRN Reason: Sleep Stop: 02/21/22 21:15 Last Admin: 01/22/22 21:42 Dose: 3 mg Documented by: Ondansetron HCl (Ondansetron Inj 2 Mg/Ml 2 Ml Vial) 4 mg IV Q4H PRN PRN Reason: Nausea And Vomiting Stop: 02/17/22 22:41 Pantoprazole Sodium (Pantoprazole 40 Mg Tab) 40 mg PO BID PRN PRN Reason: Nausea Stop: 02/17/22 22:53 Thiamine HCl (Thiamine Hcl 100 Mg Tab) 100 mg PO DAILY [facility] Stop: 02/18/22 08:59 Last Admin: 01/24/22 09:13 Dose: 100 mg Documented by: Tramadol HCl (Tramadol Hcl 50 Mg Tablet) 50 mg PO Q8H PRN PRN Reason: Pain Stop: 02/17/22 19:18 Last Admin: 01/22/22 14:24 Dose: 50 mg Documented by:
--- NOTE | 2022-01-25 07:54 | Discharge Summary ---
Date of Service January 25, 2022 Admission HPI Per Admitting Provider This is a 76-year-old male with PMHx of multiple recent hospitalizations at [facility] in [place]. He was brought locally to [facility] (assisted living) by his family, as his daughter lives here in town. He describes being in and out of the hospital on multiple occasions through September 2021. In September he was hospitalized for COVID +19 pneumonia, and reported admitted for alcohol withdrawal and stopped drinking at that time. Sometimes during this he was also worked up for a GI bleed and received 4 units of blood during a hospitalization and describes an EGD without acute source for the bleeding. He had previous back surgery who presents to the ER after he was called by outpatient provider that his kidney function was increased and daughter thought that he was in renal failure. He has previously had other issues with his kidneys during hospitalizations. Pt also describes previous back surgeries on 2005 and 2014 involving L2-L4. He has had infected abscess and osteomyelitis previously, and is on chronic doxycycline BID. Surgical Hx: R rotator cuff repair, Prostate cancer s/p prostatectomy in 2006, cholecystectomy, back surgery x 2 Social Hx; No smoking, previous alcohol use but quit drinking in Sep 2021. Creatinine is found to be 2.7 today, previously was higher than 3 per daughter through report. UTI appears to be present with a grossly infected appearing UA. Pt admits to having burning with urination within the past day, but did not think much of it. He denies increased frequency, hematuria, abdominal pain, n/v, or inability to urinate. He notes having a straight cath about 3 weeks ago because of urinary retention which in a hospital, but denies any other catheterization. Pt is chronically on doxycycline BID for hx of osteomyelitis and a spinal abscess from previous back surgeries. He has been started on 1.5 L of NSS in the ER and Rocephin IV. Pt reports he took all of his home medications. Admission Exam Per Admitting Provider Physical Exam: General: awake, alert, no apparent distress Head: Normocephalic, atraumatic ENT: PERRL, EOMI, no pharyngeal exudate, mucous membranes moist Chest: Clear to auscultation, on room air, no adventitious breath sounds Cardiac: Sinus tach, faint systolic ejection murmur, no JVD, normal peripheral pulses, good capillary refill Abdominal: NABS x 4 quadrants, soft, nondistended, nontender to palpation, no rebound or guarding Extremities: Normal inspection, no peripheral edema or erythema, calfs nontender to palpation Skin: chronic changes, parra appearance of skin throughout, no erythema Psych: Normal mood and affect Neuro: AAO x 3, strength intact bilaterally and rated 5/5, no motor deficits, speech is clear, no peripheral sensory deficits Principal Diagnosis Acute UTI, CADEN-improved, hypertension, chronic back pain with history of osteomyelitis of the lumbar spine, negative COVID-19 virus infection Discharge Exam Lying in bed comfortably Constitutional well developed, well nourished, + ill appearing and + obese Eyes PERRL, conjunctivae normal, anicteric sclerae ENMT external ear and nose normal, oropharynx normal Neck trachea midline, no thyromegaly Respiratory no respiratory distress and no labored breathing Auscultation: + diminished lung sounds; no crackles Cardiovascular Rate/Rhythm: regular rate, regular rhythm and + tachycardic Heart Sounds: normal S1 and normal S2; no murmur Extremities: no edema Gastrointestinal (Abdomen) Inspection/Auscultation: normal bowel sounds; abdomen not distended Percussion/Palpation: abdomen soft; abdomen nontender Psychiatric A+Ox3, euthymic affect Lymphatic no cervical or axillary lymphadenopathy Discharge Data Allergies Allergy/AdvReac Type Severity Reaction Status Date / Time ciprofloxacin Allergy Intermediate Rash Verified 01/18/22 16:07 codeine AdvReac Severe HALLUCINATI Verified 01/18/22 16:07 ONS minocycline AdvReac Intermediate SKIN Verified 01/18/22 16:07 DISCOLORATION Consultations 01/18/22 18:19 ED Decision to Admit Stat 01/18/22 19:19 Consult Health Information Management Stat Hospital Course (1) CADEN (acute kidney injury): Likely secondary to dehydration Creatinine is minimally improved at 2.26 from 2.70 as of yesterday Will give a small dose of intravenous fluid and monitor PRP Creatinine has been improving which is at 2.13 as of 01/20/2022 Was advised to drink more fluid We will check PRP tomorrow- creatinine has improved to 2.01 but he still remains dehydrated with BUN of 25 Strongly advised to drink more fluid Creatinine has been improving-was advised to drink more fluid Creatinine remains at 2.02 and the patient was advised to drink more fluid (2) Acute UTI (urinary tract infection): - Admit - HOLD home lasix, spironolactone and potassium for now - Cr. 2.7 on admission, trend with am labs, outpatient labs were reported to be >3. Unknown baseline. - Continue IV rocephin IV for now, allow doxycycline with hx of osteomyeltiis and chronic back issues - Consider nephrology consult, unlikely that he has established with a formwork carpenter as he just moved to the area last Saturday. - UA appears to be acutely infected, follow urine culture - Avoid nephrotoxins and renally reduce medications - HIM consulted for outside hospital records, [place], [place] -Awaiting culture and sensitivity-E. coli sensitive to cephalosporins, levofloxacin, sulfa and nitrofurantoin -Ceftriaxone has been discontinued and started with Keflex to 50 mg 3 times daily -Denies any more symptoms of UTI -Antibiotic course is finished Remains borderline tachycardic Has been tachycardic throughout his whole life Denies any symptoms We will continue current beta-tari Has been tachycardic throughout his whole life (3) Hypertension: - Cont carvedilol, holding spironolactone and lasix as above - Check 2D echo-LV is normal in size, there is mild concentric LVH, LV systolic function is normal with EF of more than 70% - EKG reviewed, monitor on tele - NO cardiac complaints presently -Remains stable and the tachycardia seems to be (4) Osteomyelitis of lumbar spine: - Hx of such, continue with doxycyline. NO current leukocytosis, afebrile, no acute co back pain. - Await outside records -We will continue current antibiotic the way he has been getting it (5) COVID-19: - Positive on admission, pt is vaccinated x 3, reports having infection in September 2021 and remains positive. He has a dry cough since then, but no other respiratory symptoms. - O2 sats are stable on room air. -Denies any significant COVID 19 infection symptoms -We will recheck COVID-19 virus before discharge -We will get another COVID test today-came back negative -Discussed with infectious disease and will need to have another test before he can be taken off isolation -He is off isolation as COVID test x2 24 hours apart remain negative -He does not require any isolation precaution for the COVID DVT ppx: teds, scds, heparin subq CODE: DNR/DNI Dispo: From [facility], likely discharge within 1-2 days. Will need PT and OT evaluation prior to discharge may be tomorrow Will be discharged to [facility] this morning Total Time Total Time Spent Total Time Spent (In Minutes): 40 minutes Discharge Plan Discharge Items Patient Disposition: Transfer Detention Fac Reason For Visit: UTI, +COVID Discharge Diagnosis: Acute UTI, CADEN-improved, hypertension, chronic back pain with history of osteomyelitis of the lumbar spine, negative COVID-19 virus infection Condition on Discharge: Fair Activity: Resume your previous activity Non-emergency contact: Primary Care Provider Call non-emergency contact if: you have any medication questions Follow-up/Referrals: Gloria Muñoz MD [Primary Care Provider] - (Date & Time 01/31/2022 10:40 AM Provider Gloria Muñoz MD Department General Internal Medicine [facility] ) Diet: Heart Healthy Addtl Attending Provider Instructions: Please take precautions to avoid fall No change in your current medication Please keep appointment with your healthcare provider Pending Studies at Discharge: No Stand-Alone Forms: My [facility] Skilled Items Patient informed of condition?: Yes DNR: Yes Discharge Level of Care: Skilled Communicable Disease: No Discharge Prognosis: Stable Lines: None Urinary Catheter: No Medications and DC Order Prescriptions: Continued doxycycline monohydrate [Monodox] 100 mg capsule 100 mg PO BID RF: 0 fluticasone propionate [Flonase Allergy Relief] 50 mcg/actuation spray,suspension 2 spray intranasal DAILY RF: 0 levocetirizine [Xyzal] 5 mg tablet 5 mg PO BID RF: 0 acetaminophen [Tylenol] 325 mg Tablet 650 mg PO Q6H PRN (Reason: FEVER/PAIN) RF: 0 tramadol 50 mg Tablet 50 mg PO Q8H PRN (Reason: Pain) RF: 0 guaifenesin 100 mg/5 mL Liquid 400 mg PO BID PRN (Reason: Cough) RF: 0 spironolactone 25 mg Tablet 25 mg PO BID RF: 0 carvedilol 3.125 mg Tablet 3.125 mg PO BIDM RF: 0 ferrous sulfate 325 mg (65 mg iron) Tablet 325 mg PO DAILY RF: 0 furosemide [Lasix] 20 mg Tablet 20 mg PO DAILY RF: 0 Lactobacillus acidophilus Capsule 10,000 mmu cells PO BID RF: 0 loratadine [Claritin] 10 mg Tablet 10 mg PO DAILY RF: 0 esomeprazole magnesium [Nexium] 20 mg Capsule,Delayed Release(Dr/Ec) 20 mg PO BID PRN (Reason: Nausea) RF: 0 thiamine mononitrate (vit B1) 100 mg Tablet 100 mg PO DAILY RF: 0 potassium chloride 20 mEq Tablet Extended Release 20 meq PO DAILY RF: 0 Liquid C 500 mg/5 mL Liquid 400 mg PO DAILY RF: 0 Discharge Orders: Discharge Order (Routine); Ordered 01/24/22 Ordered By: Kip Lundberg Admission Data Admit Date/Time: 01/18/22 19:19 Attending Provider: Kip Lundberg Admit Provider: Rivas Koch Primary Care Provider: Gloria Muñoz Other Providers: Rivas Koch ; Tasha Holbrook [facility] Other Interventions: Discharge Summary Assessment (RN) Last Done: 01/24/22 10:55
== END 2022-01-24 11:10 | DRG 683 ==
LOC: ED 14:44 → SUATTDRO 19:19 → 2W 19:19
DX: Z85.46 Personal history of malignant neoplasm of prostate; Z86.16 Personal history of COVID-19; Z66 Do not resuscitate; N17.9 Acute kidney failure, unspecified; F10.21 Alcohol dependence, in remission; Z88.5 Allergy status to narcotic agent; N39.0 Urinary tract infection, site not specified; E86.0 Dehydration; I10 Essential (primary) hypertension; Z91.19 Patient's noncompliance with other medical treatment and regimen; M46.26 Osteomyelitis of vertebra, lumbar region; Z88.1 Allergy status to other antibiotic agents